=== PATIENT | male | born 1985 | race Two or more races ===

== ENCOUNTER → 2021-04-16 15:19 | Outpatient (BNVA) | payer OTHER, SELFPAY | PROVIDERS: Visit Provider Urology | DX: N32.0 Bladder-neck obstruction (principal); R39.12 Poor urinary stream | CPT/HCPCS: 51798; 99202 ==

== ENCOUNTER 2023-07-11 20:14 | Emergency (ER) | payer MEDICAID, SELFPAY ==
--- NOTE | ~2023-07-11 | XR_ITS ---
EXAMINATION: XR HAND, RIGHT CLINICAL INFORMATION: Pain. COMPARISON: None available. TECHNIQUE: PA, lateral, and oblique views of the right hand. FINDINGS: The bones and soft tissues are normal. No fracture. Alignment is anatomic. Joint spaces are maintained. No erosions or soft tissue calcifications. XR/XR hand RT min 3V IMPRESSION: Normal right hand.
[2023-07-11 20:51] VITALS: BP 130/87; PULSE 72; RESP 16; TEMP 37.1; O2SAT 98; BMI 32.7
--- NOTE | 2023-07-11 20:54 | ED_ITS ---
HPI - General Adult General Chief complaint: Extremity Injury, Upper Stated complaint: right hand swelling Time Seen by Provider: 07/11/23 23:04 Source: patient and family services assistant Mode of arrival: ambulatory History of Present Illness HPI narrative: 37-year-old male who states he woke up and found his right hand swollen but states that a couple of days ago he tried to get rid of an infection around the nail bed of his right index finger. He denies any fevers or chills and denies any history of diabetes. Related Data Previous Rx's Medication Instructions Recorded tamsulosin 0.4 mg capsule 0.4 mg PO BEDTIME 30 days #30 caps 04/16/21 cephalexin 500 mg capsule 500 mg PO BID 5 days #10 caps 07/12/23 doxycycline monohydrate 100 mg 100 mg PO BID 5 days #10 caps 07/12/23 capsule metformin 500 mg tablet 500 mg PO BIDWMEAL 30 days #60 tabs 07/12/23 Allergies Allergy/AdvReac Type Severity Reaction Status Date / Time No Known Allergies Allergy Verified 04/16/21 15:55 Review of Systems 2 Review of Systems: Pertinent positives and negatives as stated in HPI FORMERLY [facility], [facility] Past Medical History Source: nursing notes reviewed Social History Social History Smoked in Last 30 Days: No Use of substances other than those prescribed or required for medical reasons: No Advance Directives: No Advance Directives Information Provided: Yes Physical Exam ED Vital Signs: Vital Signs - 24 hr 07/11/23 20:51 07/11/23 22:24 07/12/23 01:35 Temperature 98.7 F 99.4 F Pulse Rate 72 80 80 Respiratory Rate 16 18 14 Blood Pressure 130/87 134/85 119/69 Pulse Oximetry 98 100 96 Oxygen Delivery Method Room Air Room Air Room Air BMI result Body Mass Index 32.7 VITAL SIGNS: Reviewed. GENERAL: Well developed, well nourished, in no acute distress. HEAD: Normocephalic/atraumatic EYES: PERRLA, EOMI EARS: Ext canals without abnormality NOSE: Nares patent bilateral OROPHARYNX: no oral lesions noted, posterior pharynx clear NECK: Supple, no adenopathy LUNGS: Normal breath sounds. No adventitious sounds or accessory muscle use. SpO2<100> CARDIOVASCULAR: Regular rate and rhythm without noted murmurs ABDOMEN: Soft, non-tender, non-distended with bowel sounds. MUSCULOSKELETAL: No tenderness, deformities, or effusions noted on gross inspection. EXTREMITIES: No cyanosis, clubbing or edema. RIGHT HAND: Erythema and mild induration across the dorsal aspect of the right hand, there is an obvious paronychia to the right index finger. SKIN: Inspection of the skin reveals no rashes NEUROLOGIC: Alert and oriented x 4. Strength and sensation to light touch were grossly intact x 4. Course Course Course Narrative: RME performed by Felipa Lambert PA-C. Patient is a 37 year old assigned male at presenting to the emergency department with right hand swelling and pain as well as right index finger swelling and pain. Labs and imaging ordered. Patient placed back in the waiting room pending room availability and results. Medications Administered Discontinued Medications Generic Name Dose Route Start Last Admin Trade Name Freq PRN Reason Stop Dose Admin Cephalexin HCl 500 mg 07/12/23 00:03 07/12/23 00:07 Cephalexin 500 Mg Capsule PO 07/12/23 00:04 500 mg ONCE ONE Administration Doxycycline Monohydrate 100 mg 07/12/23 00:03 07/12/23 00:07 Doxycycline Monohydrate 100 Mg Capsule PO 07/12/23 00:04 100 mg ONCE ONE Administration Insulin Human Lispro 5 unit 07/12/23 00:51 07/12/23 00:59 Insulin Lispro 100 Unit/Ml 3 Ml Vial SUBCUT 07/12/23 00:52 5 unit ONCE ONE Administration Procedures Abscess I/D Site: upper extremity Side (if applicable): right (Index paronychia) Local Anesthetic: lidocaine 1% Amount of anesthesia used (mL): 5 Technique: incised with blade Amount of fluid expressed (mL): 0.5 Sent for culture/gram staining?: No Irrigation: Yes Packing used?: none Medical Decision Making Medical Decision Making MDM Narrative: 37-year-old male with history and clinical presentation, ddx: Right hand cellulitis, right finger paronychia I reviewed all investigations and hematologic indices are negative for leukocytosis or left shift, there is a normocytic anemia without clinical or historical evidence of active bleeding, no thrombocytopenia. Chemistry and sees are not significant for LOR there is no electrolyte or liver enzyme derangements. Patient is noted to have a random glucose of 445 without evidence of DKA or HHS. X-ray of right Burt negative for occult fracture or dislocation. Patient received initial antibiotics here in the emergency room after draining the paronychia. Patient received 5 units of subcutaneous insulin here, initial antibiotics, repeat blood sugar 364 and he is discharged home. No evidence of a DKA or HHS. Differential Diagnosis Differential Diagnoses: The differential diagnosis associated with the presentation includes Please see the discussion above Admission/Observation Consideration of admission/observation: Escalation of care including admission/observation considered Please see the discussion above Lab Data MDM Lab Attestation statement: I reviewed the patient's lab results. Please see the discussion above 07/11/23 21:20 07/11/23 21:20 Labs: Lab Results 07/11/23 07/11/23 07/11/23 Range/Units 21:20 22:23 23:40 WBC 6.6 (4.8-10.8) X10*3/uL RBC 4.66 (4.60-5.80) X10*6/uL Hgb 13.0 L (14.0-18.0) g/dl Hct 38.3 L (42.0-52.0) % MCV 82.2 (80.0-98.0) fL MCH 27.9 (27.0-33.0) pg MCHC 33.9 (31.0-36.0) g/dl RDW 12.3 (11.0-16.0) % Plt Count 206 (160-400) X10*3/uL MPV 10.4 (9.4-12.4) fL Immature Gran % (Auto) 0.3 (0.0-0.4) % Neut % (Auto) 59.0 (45-73) % Lymph % (Auto) 30.6 (20-40) % [place] % (Auto) 8.8 (2-11) % Eos % (Auto) 1.1 (0-4) % Baso % (Auto) 0.2 (0-2) % Lymph # (Auto) 2.0 (1.2-4.9) X10*3/uL [place] # (Auto) 0.6 (0.1-1.2) X10*3/uL Eos # (Auto) 0.1 (0.0-0.4) X10*3/uL Baso # (Auto) 0.0 (0.0-0.2) X10*3/uL Abs Immat Gran (auto) 0.02 (0.00-0.03) X10*3/uL Absolute Neuts (auto) 3.9 (2.0-8.3) x10*3/uL Absolute Nucleated RBC 0.000 (0.0-0.012) X10*3/uL Nucleated RBC % (auto) 0.0 (0.0-0.2) /100WBC Sodium 137 (135-145) mmol/L Potassium 4.0 (3.3-5.1) mmol/L Chloride 102 (96-108) mmol/L Carbon Dioxide 24 (22-29) mmol/L Anion Gap 15 (12-20) BUN 17 H (9-16) mg/dL Creatinine 1.21 (0.5-1.4) mg/dL Estim Creat Clear Calc 87.0 Estimated GFR > 60 POC Glucose (60-115) mg/dL Random Glucose 445 H* (60-115) mg/dL Lactic Acid 2.0 (0.5-2.0) mmol/L Calcium 9.8 (8.4-10.2) mg/dL Magnesium 1.9 (1.6-2.6) mg/dL Total Bilirubin 0.4 (0.0-1.0) mg/dL AST 13 (5-37) U/L ALT 21 (0-40) U/L Alkaline Phosphatase 91 (39-117) U/L Ammonia Cancelled Total Protein 8.1 H (6.5-8.0) g/dL Albumin 4.2 (3.5-5.0) g/dL Beta-Hydroxybutyrate 0.19 (0.02-0.27) mmol/L Urine Color Straw Urine Appearance Clear Urine pH 6.5 (5.0-9.0) Ur Specific [place] 1.010 (1.005-1.025) Urine Protein Negative (Neg-Trace) mg/dL Urine Glucose (UA) >=1000 H (Negative) mg/dL Urine Ketones Trace (Negative) mg/dL Urine Blood Negative (Negative) Urine Nitrite Negative (Negative) Ur Leukocyte Esterase Negative (Negative) Urine RBC 0-2 (0-2) /HPF Urine WBC 0-5 (0-5) /HPF Ur Squamous Epith Cells 0-2 (0-2) /HPF Urine Bacteria None Seen (None Seen) Hyaline Casts 0-2 (0-2) /LPF 07/12/23 Range/Units 00:49 WBC (4.8-10.8) X10*3/uL RBC (4.60-5.80) X10*6/uL Hgb (14.0-18.0) g/dl Hct (42.0-52.0) % MCV (80.0-98.0) fL MCH (27.0-33.0) pg MCHC (31.0-36.0) g/dl RDW (11.0-16.0) % Plt Count (160-400) X10*3/uL MPV (9.4-12.4) fL Immature Gran % (Auto) (0.0-0.4) % Neut % (Auto) (45-73) % Lymph % (Auto) (20-40) % [place] % (Auto) (2-11) % Eos % (Auto) (0-4) % Baso % (Auto) (0-2) % Lymph # (Auto) (1.2-4.9) X10*3/uL [place] # (Auto) (0.1-1.2) X10*3/uL Eos # (Auto) (0.0-0.4) X10*3/uL Baso # (Auto) (0.0-0.2) X10*3/uL Abs Immat Gran (auto) (0.00-0.03) X10*3/uL Absolute Neuts (auto) (2.0-8.3) x10*3/uL Absolute Nucleated RBC (0.0-0.012) X10*3/uL Nucleated RBC % (auto) (0.0-0.2) /100WBC Sodium (135-145) mmol/L Potassium (3.3-5.1) mmol/L Chloride (96-108) mmol/L Carbon Dioxide (22-29) mmol/L Anion Gap (12-20) BUN (9-16) mg/dL Creatinine (0.5-1.4) mg/dL Estim Creat Clear Calc Estimated GFR POC Glucose 364 H* (60-115) mg/dL Random Glucose (60-115) mg/dL Lactic Acid (0.5-2.0) mmol/L Calcium (8.4-10.2) mg/dL Magnesium (1.6-2.6) mg/dL Total Bilirubin (0.0-1.0) mg/dL AST (5-37) U/L ALT (0-40) U/L Alkaline Phosphatase (39-117) U/L Ammonia Total Protein (6.5-8.0) g/dL Albumin (3.5-5.0) g/dL Beta-Hydroxybutyrate (0.02-0.27) mmol/L Urine Color Urine Appearance Urine pH (5.0-9.0) Ur Specific [place] (1.005-1.025) Urine Protein (Neg-Trace) mg/dL Urine Glucose (UA) (Negative) mg/dL Urine Ketones (Negative) mg/dL Urine Blood (Negative) Urine Nitrite (Negative) Ur Leukocyte Esterase (Negative) Urine RBC (0-2) /HPF Urine WBC (0-5) /HPF Ur Squamous Epith Cells (0-2) /HPF Urine Bacteria (None Seen) Hyaline Casts (0-2) /LPF Radiology Impression Discussion of test interpretation with radiology: I have reviewed the radiologist's reading. Radiologist Impression: Please see the discussion above Discharge Plan Discharge Clinical Impression: Cellulitis of hand, Paronychia of right index finger, Diabetes mellitus, new onset Patient Disposition: Home, Self-Care Instructions: Paronychia (ED), Cellulitis (ED), Type 2 Diabetes in Adults: New Diagnosis (ED), Diabetes and Nutrition (ED), Diabetes and Exercise (ED) Additional Instructions: 1. Puede quitarse el ap?sito del dedo derecho y limpiar con agua y jab?n, no es necesario colocar otro ap?sito encima. 2. Complete todo el tratamiento con antibi?ticos seg?n lo prescrito. 3. Le burt diagnosticado diabetes y le burt recetado medicamentos, gonzález debe buscar un proveedor de atenci?n primaria lo antes posible. Regrese a la silverio de emergencias si los s?ntomas empeoran, drake enrojecimiento e hinchaz?n, que contin?an subiendo por el brazo. 1. You may remove the dressing off of your right finger and cleaning with soap and water, there is no need to place another dressing on top of it. 2. Please complete the entire course of antibiotics as prescribed. 3. You have been diagnosed with diabetes and you have been prescribed medication but you should seek a primary care provider at your earliest convenience. Return to the ER for any worsening symptoms such as redness and swelling continuing to move up your arm. Prescriptions: New doxycycline monohydrate 100 mg capsule 100 mg PO BID 5 Days Qty: 10 0RF cephalexin 500 mg capsule 500 mg PO BID 5 Days Qty: 10 0RF metformin 500 mg tablet 500 mg PO BIDWMEAL 30 Days Qty: 60 0RF No Action tamsulosin 0.4 mg capsule 0.4 mg PO BEDTIME 30 Days Qty: 30 0RF Print Language: Tajik
[2023-07-11 21:27] LABS: MANUAL DIFF FLAG NO
[2023-07-11 21:28] LABS: Basophils Percent Auto 0.2 % (0-2); Eosinophils Absolute Auto 0.1 X10*3/uL (0.0-0.4); Eosinophils Percent Auto 1.1 % (0-4); Hematocrit 38.3 % (42.0-52.0); Imm Gran Abs Auto 0.02 X10*3/uL (0.00-0.03); Imm Gran Pct Auto 0.3 % (0.0-0.4); Lymphocytes Percent Auto 30.6 % (20-40); Mean Corpuscular HGB Conc 33.9 g/dl (31.0-36.0); Mean Corpuscular Hemoglobin 27.9 pg (27.0-33.0); Mean Corpuscular Volume 82.2 fL (80.0-98.0); Mean Platelet Volume 10.4 fL (9.4-12.4); Monocytes Absolute Auto 0.6 X10*3/uL (0.1-1.2); Monocytes Percent Auto 8.8 % (2-11); Neutrophils Absolute Auto 3.9 x10*3/uL (2.0-8.3); Platelet Count 206 X10*3/uL (160-400); Red Blood Count 4.66 X10*6/uL (4.60-5.80); Red Cell Distribution Width 12.3 % (11.0-16.0); White Blood Count 6.6 X10*3/uL (4.8-10.8)
[2023-07-11 21:48] LABS: Alanine Aminotransferase 21 U/L (0-40); Albumin Level 4.2 g/dL (3.5-5.0); Alkaline Phosphatase 91 U/L (39-117); Anion Gap 15 (12-20); Aspartate Amino Transferase 13 U/L (5-37); Bilirubin Total 0.4 mg/dL (0.0-1.0); Blood Urea Nitrogen 17 mg/dL (9-16); Calcium 9.8 mg/dL (8.4-10.2); Carbon Dioxide 24 mmol/L (22-29); Chloride 102 mmol/L (96-108); Estimated Glomerular Filt Rate > 60; Glucose Random 445 mg/dL (60-115); Magnesium 1.9 mg/dL (1.6-2.6); Sodium 137 mmol/L (135-145); Total Protein 8.1 g/dL (6.5-8.0)
[2023-07-11 22:24] VITALS: BP 134/85; PULSE 80; RESP 18; TEMP 37.4; O2SAT 100
[2023-07-11 22:37] LABS: Appearance Urine Clear; Color Urine Straw; Glucose Urine UA >=1000 mg/dL (Negative); Leukocyte Esterase Urine Negative (Negative); Nitrite Urine Negative (Negative); PH 6.5 (5.0-9.0); UMIC TRIGGER UACC YES; Urine Blood Negative (Negative); Urine Ketones Trace mg/dL (Negative); Urine Protein Negative (Neg-Trace)
[2023-07-11 22:47] LABS: Bacteria Urine None Seen (None Seen); Hyaline Casts Urine 0-2 /LPF (0-2); RBC Urine 0-2 /HPF (0-2); Squamous Epithelial Cell Urine 0-2 /HPF (0-2); WBC Urine 0-5 /HPF (0-5)
[2023-07-12] LABS: Beta-Hydroxybutyrate 0.19 mmol/L (0.02-0.27)
[2023-07-12] MEDS: Doxycycline Monohydrate 100 MG CAPSULE PO (00:07)
[2023-07-12] MEDS: cephALEXin 500 MG CAPSULE PO (00:07)
--- NOTE | 2023-07-12 00:17 | PC.NURSE ---
Pt presents to ED with infection to the right thumb post ingrown nail. Pt reporting 1/10 pain. A&Ox4, GCS 15. Dr Hines at bedside to assess finger. Pt medicated per OCT, resting comfortably at this time.
[2023-07-12 00:53] LABS: Glucose, Whole Blood 364 mg/dL (60-115)
[2023-07-12] MEDS: Insulin Lispro 100 UNIT/ML 3 ML VIAL SUBCUT (00:59)
[2023-07-12 01:35] VITALS: BP 119/69; PULSE 80; RESP 14; O2SAT 96
[2023-07-12 01:39] LABS: Glucose, Whole Blood 369 mg/dL (60-115)
[2023-07-12 07:32] LABS: Estimated Average Glucose 266 mg/dL; Hemoglobin A1c % 10.9 % (<6.0)
== END 2023-07-12 02:00 | disposition home or self-care (01) ==
PROVIDERS: Physician Assistant Medical; Emergency Provider Student in an Organized Health Care Education/Training Program
DX: L03.011 Cellulitis of right finger (principal); R22.31 Localized swelling, mass and lump, right upper limb; Z79.899 Other long term (current) drug therapy
CPT/HCPCS: 10060; 36415; 73130; 80053; 81001; 82010; 82140; 82947; 83036; 83605; 83735; 85025; 87040; 99283; 99284

== ENCOUNTER 2023-07-19 13:45 | Outpatient (REF) | payer MEDICAID, SELFPAY ==
[2023-07-19 16:29] LABS: Estimated Average Glucose 255 mg/dL; Hemoglobin A1c % 10.5 % (<6.0)
[2023-07-19 16:45] LABS: Cholesterol 197 mg/dL (<200); HDL Cholesterol 34 mg/dL (>40); Iron 65 mcg/dL (45-160); LDL Cholesterol Calculated 97 mg/dL (<100); Percent Iron Saturation 23 % (15-50); Total Iron Binding Capacity 279 mcg/dL (228-428); Triglycerides 333 mg/dL (<150); Unsaturated Iron Binding 214 ug/dL
[2023-07-19 16:54] LABS: Ferritin 313 ng/mL (20-250); Vitamin D 25-OH Total 42.2 ng/mL (>30)
[2023-07-19 17:10] LABS: Folate 14.5 ng/mL (> or = 4.0); Vitamin B12 666 pg/mL (200-900)
== END 2023-07-19 13:46 | disposition home or self-care (01) ==
LOC: HO.HHCL 13:45
PROVIDERS: Visit Provider Emergency Medicine
DX: E11.65 Type 2 diabetes mellitus with hyperglycemia (principal); E78.2 Mixed hyperlipidemia
CPT/HCPCS: 36415; 80061; 82306; 82607; 82728; 82746; 83036; 83540

== ENCOUNTER 2023-08-02 19:05 | Emergency (ER) | payer MEDICAID, SELFPAY ==
--- NOTE | ~2023-08-02 | XR_ITS ---
EXAMINATION: XR LUMBOSACRAL SPINE CLINICAL INFORMATION: Pain COMPARISON: None available. TECHNIQUE: Three views of the lumbosacral spine. FINDINGS: Bone alignment is normal. No fracture or dislocation. Mild degenerative spondylosis from T11-T12 to L1-L2. Mild disc space narrowing at L1-L2 and L5-S1. Mild facet arthritis of the lower lumbar spine. XR/XR lumbar spine 2-3V IMPRESSION: Mild degenerative changes.
[2023-08-02 20:55] VITALS: BP 128/77; PULSE 67; RESP 16; TEMP 36.9; BMI 30.1
--- NOTE | 2023-08-02 20:55 | ED_ITS ---
HPI - General Adult General Chief complaint: Back Pain/Injury Stated complaint: back pain, no injury Time Seen by Provider: 08/02/23 23:37 Source: patient Mode of arrival: ambulatory Limitations: no limitations History of Present Illness HPI narrative: Patient is a 37 y.o. male presents for diffuse lower back pain. Sudden onset at 18:30 tonight, was bending forward to pick sumething up and had sudden pain. Reports hx of similat in the past, resolved after a few days. Denies recent fevers, chills, burning with micturition, urinary frequency/urgency/hesitancy, bladder or bowel dysfunction, numbness or tingling of the perineum or bilateral legs. Denies any recent surgical procedures, any known immune compromising conditions, personal history of cancer, or IV drug usage. Related Data Previous Rx's Medication Instructions Recorded tamsulosin 0.4 mg capsule 0.4 mg PO BEDTIME 30 days #30 caps 04/16/21 cephalexin 500 mg capsule 500 mg PO BID 5 days #10 caps 07/12/23 doxycycline monohydrate 100 mg 100 mg PO BID 5 days #10 caps 07/12/23 capsule metformin 500 mg tablet 500 mg PO BIDWMEAL 30 days #60 tabs 07/12/23 cyclobenzaprine 10 mg tablet 10 mg PO TID PRN muscle spasm #20 08/03/23 tabs lidocaine 5 % topical patch 1 patch topical DAILY #15 ea 08/03/23 Allergies Allergy/AdvReac Type Severity Reaction Status Date / Time No Known Allergies Allergy Verified 08/02/23 20:55 Review of Systems Review of Systems: Yes all other systems are reviewed and are negative [facility] Past Medical History Attestation statement: The following information was validated with the patient. Source: old records reviewed Social History Social History Advance Directives: No Advance Directives Information Provided: No Physical Exam ED Vital Signs: Vital Signs - 24 hr 08/02/23 20:55 08/02/23 23:21 Temperature 98.4 F 98.5 F Pulse Rate 67 58 Respiratory Rate 16 14 Blood Pressure 128/77 121/73 Pulse Oximetry 99 Oxygen Delivery Method Room Air BMI result Body Mass Index 30.1 Appearance: Alert.?Oriented to person, place and time. No acute distress.?Normal affect. Eyes: Pupils equal, round and reactive to light.? ENT: Pharynx normal.?? Neck: Normal inspection.? Neck supple.?? CVS: Heart sounds normal. Normal heart rate and rhythm.? Pulses normal; bilateral radial pulses 2+, bilateral posterior tibial/dorsalis pedis pulses 2+.? Respiratory: No respiratory distress.? Lung sounds clear to auscultation bilaterally?? Abdomen: Soft and non-tender. Normoactive bowel sounds. No pulsatile mass.?? Skin: Skin warm and dry.? Normal skin color.? Normal skin turgor.?? Extremities: No lower extremity edema.? No calf ttp? Back: + mild paraspinal muscular tenderness from lumbar region to coccyx. No CVA tenderness. No midline spinal tenderness, step-off's, or deformity. Full ROM intact in bilateral lower extremities. Straight leg test negative on right; Straight leg test negative on left. No rashes, lesions, areas of induration or fluctuance, or signs of infection noted., Neuro: Moves all extremities spontaneously. 5/5 strength in hip extension/flexion, abduction, adduction. Sensation to light touch intact bilaterally. Patellar and Achilles reflex 2+ bilaterally. No ataxia, gait normal and steady.. No focal neuro deficits. Course Course Course Narrative: RME:?37 yo male here w/ low back pain beginning at 1800 today after bending forward to grab something. Pain localized to low back. No radiation down legs. Took Tylenol without relief. Denies saddle anesthesia, bowel or bladder incontinence or retention, numbness/weakness/tingling down lower extremities. No previous back surgery. No hx of IVDU. xrays ordered Full HPI, ROS and PE to be performed by the primary ED provider. Medications Administered Discontinued Medications Generic Name Dose Route Start Last Admin Trade Name Freq PRN Reason Stop Dose Admin Ketorolac Tromethamine 30 mg 08/03/23 00:32 08/03/23 00:43 Ketorolac Tromethamine 30 Mg/Ml Vial IM 08/03/23 00:33 30 mg ONCE ONE Administration Lidocaine 1 patch 08/03/23 00:32 08/03/23 00:44 Lidocaine 4 % Patch Adh..Patch TRANSDERMA 08/03/23 00:33 1 patch ONCE ONE Administration Protocol Medical Decision Making Medical Decision Making MDM Narrative: Patient is a 37-year-old male who presents emergency department for evaluation of back pain as per HPI. At my examination he appears overall well, nontoxic, afebrile. He has had recent diagnosis of diabetes, reports compliance with metformin. Her physical examination is overall reassuring, he does have tenderness upon palpation of the paraspinal muscles in the lumbar region. No midline tenderness, step-offs, deformities. XR obtained prior to my assumption of care does not reveal evidence of fracture or subluxation, there is degenerative changes present. At this time I suspect Pain is most consistent with muscular pain, although cannot completely exclude herniated disc. On neurological exam there are no deficits. Not consistent with spinal fracture, spinal infection, epidural abscess, AAA, epidural abscess, or dissection. No high risk past medical history including incontinence, fever, immunosuppression, recent surgery or lumbar puncture, coagulopathy, significant trauma, recent unintentional weight loss, pulsatile mass, history of cancer, history of TB, history of IV drug use that would warrant MRI or CT. Not consistent with pyelonephritis, urinary tract infection, renal calculi, appendicitis, diverticulitis. On exam no concern for cauda equina syndrome. No imaging is currently indicated at this time. Plan for discharge home with prescription for lighted derm patch, cyclobenzaprine and follow-up with primary care provider, and patient agreed with plan. Differential Diagnosis Differential Diagnoses: The differential diagnosis associated with the presentation includes (As noted above) Admission/Observation Consideration of admission/observation: Escalation of care including admission/observation considered (As noted above) Lab Data MDM Lab Attestation statement: I reviewed the patient's lab results. (As noted above) Labs: Lab Results 08/03/23 Range/Units 00:03 Urine Color Yellow Urine Appearance Clear Urine pH 6.5 (5.0-9.0) Ur Specific [place] 1.020 (1.005-1.025) Urine Protein Negative (Neg-Trace) mg/dL Urine Glucose (UA) 100 H (Negative) mg/dL Urine Ketones Negative (Negative) mg/dL Urine Blood Negative (Negative) Urine Nitrite Negative (Negative) Ur Leukocyte Esterase Negative (Negative) Independent Interpretation I performed an independent interpretation of an: Plain X-Ray (I personally interpreted XR imaging and agree with radiologist impression) Radiology Impression Discussion of test interpretation with radiology: I have reviewed the radiologis t's reading. Radiologist Impression: XR/XR lumbar spine 2-3V IMPRESSION: Mild degenerative changes. Prescription Management I considered prescription management with: Pain Medication Discharge Plan Discharge Clinical Impression: Strain of lumbar region Patient Disposition: Home, Self-Care Instructions: Acute Low Back Pain (ED), Lower Back Exercises (ED) Additional Instructions: You can take ibuprofen 200 mg, 3 tablets (600mg) every 6-8 hours as needed for pain, in addition to Tylenol 500 mg, 2 tablets (1,000mg) every 4-6 hours as needed for pain, but not to exceed 3 doses daily (3,000mg).? Use Lidoderm patch, wear for 12 hours and remove for 12 hours I sent a prescription for cyclobenzaprine/Flexeril to your pharmacy. This is a muscle relaxant medication. May with drowsy. He should not drive, drink alcohol, or work while taking this medication. Follow-up with your primary care provider. Return back to emergency department any new or worsening symptoms or concerns. Prescriptions: New cyclobenzaprine 10 mg tablet 10 mg PO TID PRN (Reason: muscle spasm) Qty: 20 0RF lidocaine 5 % adhesive patch,medicated 1 patch topical DAILY Qty: 15 0RF Rx Instructions: leave on most painful area for up to 12 hrs No Action doxycycline monohydrate 100 mg capsule 100 mg PO BID 5 Days Qty: 10 0RF cephalexin 500 mg capsule 500 mg PO BID 5 Days Qty: 10 0RF metformin 500 mg tablet 500 mg PO BIDWMEAL 30 Days Qty: 60 0RF tamsulosin 0.4 mg capsule 0.4 mg PO BEDTIME 30 Days Qty: 30 0RF Referrals: Physician,None [Primary Care Provider] -
[2023-08-02 23:21] VITALS: BP 121/73; PULSE 58; RESP 14; TEMP 36.9; O2SAT 99
--- NOTE | 2023-08-02 23:28 | PC.NURSE ---
Pt is a 37 y/o male who presents for evaluation of lower back pain that started at approximately 1800 hours today after lifting some heavy objects. Pt reports pain as non-radiating, constant, sharp, and rated 12/10. Reports taking one tab of OTC Lan ASA at home at 1900 hours with no relief or reduction of pain. Denies any numbness or tingling in extremities. Able to ambulate without assistance and CSMs are intact. No similar episode reported in the past and no reported history of back problems. Pts verbalized position of comfort is sitting upright.
[2023-08-03 00:11] LABS: Appearance Urine Clear; Color Urine Yellow; Glucose Urine UA 100 mg/dL (Negative); Leukocyte Esterase Urine Negative (Negative); Nitrite Urine Negative (Negative); PH 6.5 (5.0-9.0); Urine Blood Negative (Negative); Urine Ketones Negative (Negative); Urine Protein Negative (Neg-Trace)
[2023-08-03] MEDS: Ketorolac Tromethamine 30 MG/ML VIAL IM (00:43)
[2023-08-03] MEDS: Lidocaine 4 % Patch ADH..PATCH 1 PATCH TRANSDERMA (00:44)
== END 2023-08-03 01:30 | disposition home or self-care (01) ==
PROVIDERS: Nurse Practitioner Family; Emergency Provider Emergency Medicine
DX: M54.50 Low back pain, unspecified (principal); R35.0 Frequency of micturition; Z79.899 Other long term (current) drug therapy
CPT/HCPCS: 72100; 81003; 96372; 99284; J1885

== ENCOUNTER 2023-09-19 13:50 | Outpatient (REF) | payer MEDICAID, SELFPAY ==
[2023-09-19 16:28] LABS: Anion Gap 14 (12-20); Blood Urea Nitrogen 15 mg/dL (9-16); Calcium 9.9 mg/dL (8.4-10.2); Carbon Dioxide 26 mmol/L (22-29); Chloride 104 mmol/L (96-108); Estimated Glomerular Filt Rate > 60; Glucose Random 220 mg/dL (60-115); Potassium 4.6 mmol/L (3.3-5.1); Sodium 139 mmol/L (135-145)
[2023-09-19 17:45] LABS: Creatinine Urine 123.47 mg/dL; Microalbum/Creatinine Ratio Ur 6.4 ug/mg cr (<30)
== END 2023-09-19 13:51 | disposition home or self-care (01) ==
LOC: HO.HHCL 13:50
PROVIDERS: Visit Provider Nurse Practitioner Family
DX: E11.65 Type 2 diabetes mellitus with hyperglycemia (principal); E78.2 Mixed hyperlipidemia
CPT/HCPCS: 36415; 80048; 82043; 82570

== ENCOUNTER 2025-02-26 13:40 | Inpatient (IN) | payer MEDICAID, SELFPAY ==
--- NOTE | ~2025-02-26 | XR_ITS ---
EXAMINATION: XR FOOT, RIGHT CLINICAL INFORMATION: swelling red. osteo COMPARISON: None available. TECHNIQUE: AP, lateral, and oblique views of the right foot. FINDINGS: The bones and soft tissues are normal. No fracture. There is mild hallux valgus deformity across the IP joint of the great toe. Joint spaces are maintained. There is a calcaneal enthesophyte at the Achilles insertion. XR/XR foot RT 2V IMPRESSION: Mild hallux valgus deformity. Otherwise, unremarkable right foot. Electronically signed by: Hudson Lanza MD 02/26/2025 03:28 PM EDT
--- NOTE | ~2025-02-26 | XR_ITS ---
EXAMINATION: XR ANKLE, right CLINICAL INFORMATION: swollen red. osteo? COMPARISON: None available. TECHNIQUE: AP, lateral, and mortise views lower extremity joint, ankle. FINDINGS: Ankle mortise is congruent. There is no widening of the syndesmosis. Talar dome is intact. There is a small enthesophyte at the Achilles insertion on calcaneus. There is soft tissue swelling at the level of the ankle joint. XR/XR ankle RT 2V IMPRESSION: Unremarkable ankle x-ray. Electronically signed by: Hudson Lanza MD 02/26/2025 03:26 PM EDT
--- NOTE | ~2025-02-26 | XR_ITS ---
EXAMINATION: XR TIBIA AND FIBULA, RIGHT CLINICAL INFORMATION: RIght leg swelling/redness COMPARISON: None available. TECHNIQUE: AP and lateral views of the right tibia and fibula were obtained. FINDINGS: The bones and soft tissues are normal. No fracture. No osseous lesions. XR/XR tibia fibula RT 2V IMPRESSION: Unremarkable right lower leg. Electronically signed by: Hudson Lanza MD 02/26/2025 03:27 PM EDT
[2025-02-26 14:20] VITALS: BP 130/86; PULSE 91; RESP 16; TEMP 36.8; O2SAT 98; BMI 32.4
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
[2025-02-26 15:01] LABS: MANUAL DIFF FLAG NO
[2025-02-26 15:03] LABS: Hematocrit 36.7 % (42.0-52.0); Hemoglobin 12.6 g/dl (14.0-18.0); Imm Gran Abs Auto 0.04 X10*3/uL (0.00-0.03); Imm Gran Pct Auto 0.4 % (0.0-0.4); Lymphocytes Absolute Auto 1.6 X10*3/uL (1.2-4.9); Mean Corpuscular HGB Conc 34.3 g/dl (31.0-36.0); Mean Corpuscular Hemoglobin 27.8 pg (27.0-33.0); Mean Corpuscular Volume 80.8 fL (80.0-98.0); NRBC Abs Auto 0.000 X10*3/uL (0.0-0.012); NRBC Pct Auto 0.0 /100WBC (0.0-0.2); Platelet Count 207 X10*3/uL (160-400); Red Blood Count 4.54 X10*6/uL (4.60-5.80); White Blood Count 9.4 X10*3/uL (4.8-10.8)
[2025-02-26 15:19] LABS: Alanine Aminotransferase 23 U/L (0-40); Albumin Level 4.8 g/dL (3.5-5.0); Alkaline Phosphatase 93 U/L (39-117); Anion Gap 14 (12-20); Aspartate Amino Transferase 17 U/L (5-37); Blood Urea Nitrogen 12 mg/dL (9-16); Calcium 10.0 mg/dL (8.4-10.2); Carbon Dioxide 23 mmol/L (22-29); Chloride 103 mmol/L (96-108); Creatinine Clr Calc Pharmacy 155.7; Estimated Glomerular Filt Rate > 60; Potassium 4.3 mmol/L (3.3-5.1); Sodium 136 mmol/L (135-145); Total Protein 8.3 g/dL (6.5-8.0)
--- OUTSIDE RECORDS SUMMARY | 2025-02-26 16:44 | XMS_ITS | Clinical Summary ---
Author Organization [employer] Address [address] [place] [address] [address] [place] [address] Care Team Providers Care Oil Well Engineer Name Role Phone EditaCely conn ANDREW Primary Care Provider [phone] Allergies No known active allergies Medications Alcohol Swabs (Alcohol Prep) pads 1 each 2 times daily. 100 each 3 3 Active FREESTYLE LITE test strip Use as instructed 100 each 12 3 Active Blood Glucose Monitoring Suppl (FreeStyle Lite) w/Device kit 1 each 2 times daily. 1 kit 3 Active pen needle 32G x 4 mm misc Use as instructed 100 each 3 3 Active TRUEplus Lancets 33G misc USE DIRECTED TO TEST BLOOD SUGAR TWICE DAILY 100 each 11 4 Active metFORMIN (Glucophage) 500 MG tabletIndicatio ns:Type 2 diabetes mellitus with hyperglycemia, without long-term current use of insulin ([facility]) Take 1 tablet (500 mg) by mouth with breakfast and with evening meal. 60 tablet 3 4 Active Active Problems Problem Noted Date Diagnosed Date Mixed hyperlipidemia 07/13/2023 Type 2 diabetes mellitus wit h hyperglycemia, without long-term current use of insulin 07/13/2023 Anemia 07/13/2023 Encounters Date Type Department Care Team Description 02/26/2025 Orders Only GENERIC EXTERNAL DATA DEPARTMENT Provider, Generic External Data from Last 3 Months Immunizations Immunization Administration Dates Next Due Pneumococcal Conjugate PCV 20 11/07/2023 Tdap 11/07/2023 Family History Medical History Relation Name Comments Breast cancer Maternal Grandmother Relation Name Status Comments Maternal Grandmother Social History Tobacco Use Types Packs/Day Years Used Date Smoking Tobacco: Never Smokeless Tobacco: Never Tobacco Cessation:Counseling Given: Not Answered Alcohol Use Standard Drinks/Week Comments Yes 6 (1 standard drink = 0.6 oz pur e alcohol) 2-3 times monthly Depression Answer Date Recorded Patient Health Questionnaire-9 Score 1 08/26/2023 Patient Health Questionnaire-9 Score 1 08/26/2023 Last PHQ-9: Questionnaire Data Not on file 0 08/26/2023 Housing Stability Answer Date Recorded What is your housing situation today? I have eufemia wilkins 08/18/[address] you li ve. Do you have problems with any of the following? None of the above 08/18/2023 Food Insecurity Answer Date Recorded Within the past 12 months, y ou worried that your food would run out before you got money to buy more: Never True 08/18/2023 Within the past 12 months,th e food you bought just didn't last and you didn't have enough money to get more: Never True 06/2024 Transportation Answer Date Recorded In the past 12 months, has l ack of transportation kept you from medical appts, meetings, work or from getting things needed for daily living? No 08/18/2023 Utilities Answer Date Recorded In the past 12 months, has t he electric, gas, oil or water company threatened to shut off services in your home? No 08/18/2023 Depression Answer Date Recorded Patient Health Questionnaire-2 Score 0 08/26/2023 Sex and Gender Information Value Date Recorded Sex Assigned at Male 06/07/2022 10:37 AM EDT Legal Sex Male 10:37 AM EDT Gender Identity Male 06/07/2022 10:37 AM EDT Sexual Orientation Straight 06/07/2022 10 :37 AM EDT Last Filed Vital Signs Vital Sign Reading Time Taken Comments Blood Pressure 132/68 11/07/2023 3:49 PM EDT Pulse 74 11/07/2023 3:49 PM EDT Temperature 36.4 C (97.6 F) 07/13/2023 8:59 AM EST Respiratory Rate 20 08/26/2023 3:32 PM EST Oxygen Saturation 98% 08/26/2023 3:32 PM EST Inhaled Oxygen Concentration - - Weight 94 kg (207 lb 3.2 oz) 08/26/2023 3:32 PM EST Height 167.6 cm (5' 6 ) 08/26/2023 3:32 PM EST Body Mass Index 33.44 08/26/2023 3:32 PM EST Plan of Treatment Upcoming Encounters Date Type Department Care Team (Late st Contact Info) Description 05/06/2025 1:30 PM EDT Office Visit [facility] [address] [place] [address] Indra, Ramona, OD [address] [place] [address] Health Maintenance Due Date Last Done Comments Disability Screening 1983 Diabetes: Foot Exam 1993 Alcohol/Substance Use Screening 1995 Family Planning (PISQ) 1998 HPV Vaccines (1 - Male 3-dose series) 1998 Hepatitis B Vaccines (1 of 3 - 19+ 3-dose series) 2002 Dental Oral Exam 03/02/2021 09/01/2020 Dental X-Ray: Bitewings 09/02/2021 09/01/2020 Dental Prophylaxis 10/02/2021 03/31/2021, 09/16/2020 Dental X-Ray: Full Mouth 09/02/2023 09/01/2020 Diabetes: Hemoglobin A1C 02/06/2024 024, 07/19/2023, 07/13/2023, Additional history exists COVID-19 Vaccine ( season) 2024 01/08/2021, 12/10/2020 Lipid Panel 07/19/2024 07/19/2023, 03/10/2021 Depression Screening 08/26/2024 08/26/2023, 08/26/19 24 SDOH Screening 08/26/2024 08/26/2023 Diabetes: Urine Protein Screening 09/19/2024 09/19/2023 Tobacco Screening 09/28/2024 09/28/2023 Influenza Vaccine (#1) 2025 Eye Exam 09/07/2025 09/07/2023, 08/10, 09/07/2023, Additional history exists Zoster Vaccines (1 of 2) 2033 DTaP/Tdap/Td Vaccines (2 - Td or Tdap) 11/06/2033 11/07/2023 RSV Patients and Patients Aged 60 years or older (1 - 1-dose 75+ series) 2058 HIV Screening Completed 03/10/2021 Hepatitis C Screening Completed 03/10/2021 Pneumococcal Vaccine: Pediatrics (0 to 5 Years) and At-Risk Patients (6 to 49) Years Completed 11/07/2023 HIB Vaccines Aged Out No longer eligi ble based on patient's age to complete this topic Hepatitis A Vaccines Aged Out No long er eligible based on patient's age to complete this topic IPV Vaccines Aged Out No longer eligi ble based on patient's age to complete this topic Meningococcal B Vaccine Aged Out No l onger eligible based on patient's age to complete this topic Meningococcal Vaccine Aged Out No mehnaz josé luis eligible based on patient's age to complete this topic RSV under 20 months Aged Out No longe r eligible based on patient's age to complete this topic Rotavirus Vaccines Aged Out No longer eligible based on patient's age to complete this topic Goals Goal Patient Goal Type Associated Problems Recent Progress Patient-Stated? Author Hemoglobin A1c < 7 Result Component 7(11/07/2023 3:51 PM EDT) No Marsha Warner Record your blood sugar two times daily Result Component No Marsha Warner Procedures Procedure Name Priority Date/Time Associated Diagnosis Comments XR ANKLE 2 VIEWS RIGHT Routine 02/26/2025 3:10 PM EDT SED RATE BY MODIFIED WESTERGREN Routine 02/26/2025 2:54 PM EDT C-REACTIVE PROTEIN Routine 02/26/2025 2: 54 PM EDT COMPREHENSIVE METABOLIC PANEL Routine 02/26/2025 2:54 PM EDT LACTIC ACID Routine 02/26/2025 2:54 PM EDT CBC WITH AUTO DIFFERENTIAL Routine 02/26/2025 2:54 PM EDT XR FOOT 1-2 VIEWS RIGHT Routine 02/26/2025 2:16 PM EDT XR TIBIA FIBULA 2 VIEWS RIGHT Routine 02/26/2025 2:13 PM EDT POCT GLYCATED HEMOGLOBIN, TOTAL Routine 11/07/2023 3:51 PM EDT Type 2 diabetes mellitus with hyperglycemia, without long-term current use of insulin (CMS/HCC) ALBUMIN, RANDOM URINE W/CREATININE Routine 09/19/2023 1:53 PM EST Type 2 diabetes mellitus with hyperglycemia, without long-term current use of insulin (CMS/HCC) LIPID PANEL, STANDARD Routine 07/19/2023 1:49 PM EST Mixed hyperlipidemia PROPHYLAXIS - ADULT Routine 03/31/2021 1 2:00 AM EDT ZZZ HISTORICAL HEPATITIS C AB W/REFL TO HCV RNA, QN, PCR Routine 03/10/2021 9:15 AM EDT HIV 1/2 ANTIGEN/ANTIBODY, FOURTH GENERATION W/RFL Routine 03/10/2021 9:15 AM EDT INTRAORAL - COMPLETE SERIES OF RADIOGRAPHIC IMAGES Routine 09/01/2020 12:00 AM EST COMPREHENSIVE ORAL EVALUATION - NEW OR ESTABLISHED PATIENT Routine 09/01/2020 12:00 AM EST from Last 3 Months or Most Recently Relevant to Health Maintenance Results * XR Ankle 2 Views Right (02/26/2025 3:10 PM EDT) Anatomical Region Laterality Modality Lower Extremities, Ankle Right Radiogr aphic Imaging 02/26/2025 3:10 PM EDT Narrative 02/26/2025 3:28 PM [address]T [address] [address] XRay Report Signed Patient: Schuyler Kathleen MR#: [id number] : 1985 Acct:[id number] Age/Sex: 39 / M ADM Date: 02/26/25 Loc: HO.ED Attending Dr: Ordering Physician: Zacarias Polanco Date of Service: 02/26/25 Procedure(s): XR ankle RT 2V Accession Number(s): [id number] cc: Zacarias Polanco; [facility] EXAMINATION: XR ANKLE, right CLINICAL INFORMATION: swollen red. osteo? COMPARISON: None available. TECHNIQUE: AP, lateral, and mortise views lower extremity joint, ankle. FINDINGS: Ankle mortise is congruent. There is no widening of the syndesmosis. Talar dome is intact. There is a small enthesophyte at the Achilles insertion on calcaneus. There is soft tissue swelling at the level of the ankle joint. XR/XR ankle RT 2V IMPRESSION: Unremarkable ankle x-ray. Electronically signed by: Hudson Lanza MD 02/26/2025 03:26 PM EDT Dictated By: Hudson Lanza MD Signed By: <Electronically signed by Hudson Lanza MD in OV> 02/26/25 1526 DD/ 1510 TD/TT: 02/26/25 1521 Jack Winder: Procedure Note Donotuseinterpreter, Image - 02/26/[address] [address] XRay Report Signed Patient: Schuyler Kathleen AMR#: M [id number] : 1985Acct:[id number] Age/Sex: 39 / MADM Date: 02/26/25 Loc: .ED Attending Dr: Ordering Physician: Zacarias Polanco Date of Service: 02/26/25 Procedure(s): XR ankle RT 2V Accession Number(s): [id number] cc: Zacarias Polanco; [facility] EXAMINATION: XR ANKLE, right CLINICAL INFORMATION: swollen red. osteo? COMPARISON: None available. TECHNIQUE: AP, lateral, and mortise views lower extremity joint, ankle. FINDINGS: Ankle mortise is congruent. There is no widening of the syndesmosis. Talar dome is intact. There is a small enthesophyte at the Achilles insertion on calcaneus. There is soft tissue swelling at the level of the ankle joint. XR/XR ankle RT 2V IMPRESSION: Unremarkable ankle x-ray. Electronically signed by: Hudson Lanza MD 02/26/2025 03:26 PM EDT RP Dictated By: Hudson Lanza MD Signed By: <Electronically signed by Hudson Lanza MD in OV> 02/26/25 1526 DD/ 1510 TD/TT: 02/26/25 1521 Jack Winder: [facility] External Provider IMG XR PROCEDURES Final Result * (ABNORMAL) CBC auto differential (02/26/2025 2:54 PM EDT) White Blood Count 9.4 4.8 - 10.8 X10*3/uL [facility] Red Blood Count 4.54(L) 4.60 - 5.80 X10*6/uL [facility] Hemoglobin 12.6(L) 14.0 - 18.0 g/dl [facility] Hematocrit 36.7(L) 42.0 - 52.0 % [facility] Mean Corpuscular Volume 80.8 80.0 - 98.0 fL [facility] Mean Corpuscular Hemoglobin 27.8 27.0 - 33.0 pg [facility] Mean Corpuscular HGB Conc 34.3 31.0 - 36.0 g/dl [facility] Red Cell Distribution Width 12.6 11.0 - 16.0 % [facility] Platelet Count 207 160 - 400 X10*3/uL [facility] Mean Platelet Volume 10.0 9.4 - 12.4 fL [facility] Neutrophils Percent Auto 73.5(H) 45 - 73 % [facility] Imm Gran Pct Auto 0.4 0.0 - 0.4 % [facility] Lymphocytes Percent Auto 16.9(L) 20 - 40 % [facility] Monocytes Percent Auto 8.4 2 - 11 % [facility] Eosinophils Percent Auto 0.7 0 - 4 % [facility] Basophils Percent Auto 0.1 0 - 2 % [facility] NRBC Pct Auto 0.0 0.0 - 0.2 /100WBC [facility] Neutrophils Absolute Auto 6.9 2.0 - 8.3 x10*3/uL [facility] Imm Gran Abs Auto 0.04(H) 0.00 - 0.03 X10*3/uL [facility] Lymphocytes Absolute Auto 1.6 1.2 - 4.9 X10*3/uL [facility] Monocytes Absolute Auto 0.8 0.1 - 1.2 X10*3/uL [facility] Eosinophils Absolute Auto 0.1 0.0 - 0.4 X10*3/uL [facility] Basophils Absolute Auto 0.0 0.0 - 0.2 X10*3/uL [facility] NRBC Abs Auto 0.000 0.0 - 0.012 X10*3/uL [facility] 02/26/2025 2:54 PM EDT 02/26/2025 2:59 PM EDT Generic External Data Provider LAB BLOOD ORDERAB LES Final Result Performing Organization Address [facility]/ZIP Co de Phone Number [facility] [address] [place] [phone] * (ABNORMAL) Sed Rate by Modified Pamela (02/26/2025 2:54 PM EDT) Erythrocyte Sedimentation Rate 69(H) 0 - 15 MM/HR [facility] Comment:Patients with polycy themia and many hemoglobin abnormalitiesmay have depressed sed rates whereas patients with anemiamay have elevated sed rates. 02/26/2025 2:54 PM EDT 02/26/2025 2:59 PM EDT us Generic External Data Provider LAB BLOOD ORDERAB LES Final Result Performing Organization Address [facility]/ZIP Co de Phone Number [facility] [address] [place] [phone] * (ABNORMAL) C-reactive Protein (02/26/2025 2:54 PM EDT) Pathologist [facility] C Reactive Protein 14.21(H) < or = 0.50 mg/dL [facility] 02/26/2025 2:54 PM EDT 02/26/2025 2:59 PM EDT Generic External Data Provider LAB BLOOD ORDERAB LES Final Result Performing Organization Address [facility]/ZIP Co de Phone Number [facility] [address] [place] [phone] * Lactic Acid (02/26/2025 2:54 PM EDT) [facility] Lactic Acid 0.9 0.5 - 2.0 mmol/L [facility] 02/26/2025 2:54 PM EDT 02/26/2025 2:59 PM EDT [employer] External Data Provider LAB BLOOD ORDERAB LES Final Result Performing Organization Address [facility] Co de Phone Number [facility] [address] [place] [phone] * (ABNORMAL) Comprehensive Metabolic Panel (02/26/2025 2:54 PM EDT) [facility] Sodium 136 135 - 145 mmol/L [facility] Potassium 4.3 3.3 - 5.1 mmol/L [facility] Chloride 103 96 - 108 mmol/L [facility] Carbon Dioxide 23 22 - 29 mmol/L [facility] Anion Gap 14 12 - 20 [facility] Urea Nitrogen (BUN) 12 9 - 16 mg/dL [facility] Creatinine, Serum 0.66 0.5 - 1.4 mg/dL [facility] Creatinine Clr Calc Pharmacy 155.7 [facility] Comment:eGFR (calculated fro m the MDRD study equation) and eCrCl(calculated from the Cockcroft-Gault equation) are based ondifferent parameters and may not yield comparable results.If eCrCl result is absurd, please check patient'sheight/weight. Estimated Glomerular Filt Rate >60 [facility] Comment:Chronic Kidney Disea se: Estimated GFR < 60 mL/min/1.39n4Nzofty Kidney Disease: Estimated GFR < 15 mL/min/1.73m2 Glucose 273(H) 60 - 115 mg/dL [facility] Calcium 10.0 8.4 - 10.2 mg/dL [facility] Bilirubin, Total 0.7 0.0 - 1.0 mg/dL [facility] Aspartate Amino Transferase 17 5 - 37 U/L [facility] Alanine Aminotransferase 23 0 - 40 U/L [facility] Total Protein 8.3(H) 6.5 - 8.0 g/dL [facility] Albumin Level 4.8 3.5 - 5.0 g/dL [facility] Alkaline Phosphatase 93 39 - 117 U/L [facility] 02/26/2025 2:54 PM EDT 02/26/2025 2:59 PM EDT us Generic External Data Provider LAB BLOOD ORDERAB LES Final Result [facility] [address] [place] [phone] * XR Foot 1-2 Views Right (02/26/2025 2:16 PM EDT) Anatomical Region Laterality Modality Lower Extremities, Foot Right Radiogra phic Imaging 02/26/2025 2:16 PM EDT Narrative 02/26/2025 3:31 PM EDT [address] [address] XRay Report Signed Patient: Schuyler Kathleen MR#: M [id number] : 1985 Acct:[id number] Age/Sex: 39 / M ADM Date: 02/26/25 Loc: .ED Attending Dr: Ordering Physician: Zacarias Polanco Date of Service: 02/26/25 Procedure(s): XR foot RT 2V Accession Number(s): [id number] cc: Zacarias Polanco; [facility] EXAMINATION: XR FOOT, RIGHT CLINICAL INFORMATION: swelling red. osteo COMPARISON: None available. TECHNIQUE: AP, lateral, and oblique views of the right foot. FINDINGS: The bones and soft tissues are normal. No fracture. There is mild hallux valgus deformity across the IP joint of the great toe. Joint spaces are maintained. There is a calcaneal enthesophyte at the Achilles insertion. XR/XR foot RT 2V IMPRESSION: Mild hallux valgus deformity. Otherwise, unremarkable right foot. Electronically signed by: Hudson Lanza MD 02/26/2025 03:28 PM EDT Dictated By: Hudson Lanza MD Signed By: <Electronically signed by Hudson Lanza MD in OV> 02/26/25 1528 DD/ 1416 TD/TT: 02/26/25 1521 Jack Winder: Procedure Note Donotuseinterpreter, Image - 02/26/2025 [place] [address] XRay Report Signed Patient: Schuyler Kathleen AMR#: M [id number] : 1985Acct:[id number] Age/Sex: 39 / MADM Date: 02/26/25 Loc: HO.ED Attending Dr: Ordering Physician: Zacarias Polanco Date of Service: 02/26/25 Procedure(s): XR foot RT 2V Accession Number(s): [id number] cc: Zacarias Polanco; [facility] EXAMINATION: XR FOOT, RIGHT CLINICAL INFORMATION: swelling red. osteo COMPARISON: None available. TECHNIQUE: AP, lateral, and oblique views of the right foot. FINDINGS: The bones and soft tissues are normal. No fracture. There is mild hallux valgus deformity across the IP joint of the great toe. Joint spaces are maintained. There is a calcaneal enthesophyte at the Achilles insertion. XR/XR foot RT 2V IMPRESSION: Mild hallux valgus deformity. Otherwise, unremarkable right foot. Electronically signed by: Hudson Lanza MD 02/26/2025 03:28 PM EDT RP Dictated By: Hudson Lanza MD Signed By: <Electronically signed by Hudson Lanza MD in OV> 02/26/25 1528 DD/ 1416 TD/TT: 02/26/25 1521 Jack Winder: us [facility] External Provider IMG XR PROCEDURES Final Result * XR Tibia Fibula 2 Views Right (02/26/2025 2:13 PM EDT) Anatomical Region Laterality Modality Lower Extremities, Lower Leg Right Rad iographic Imaging 02/26/2025 2:13 PM EDT Narrative 02/26/2025 3:30 PM EDT [address] [address] XRay Report Signed Patient: Schuyler Kathleen MR#: M [id number] : 1985 Acct:[id number] Age/Sex: 39 / M ADM Date: 02/26/25 Loc: .ED Attending Dr: Ordering Physician: Zacarias Polanco Date of Service: 02/26/25 Procedure(s): XR tibia fibula RT 2V Accession Number(s): [id number] cc: Zacarias Polanco; [facility] EXAMINATION: XR TIBIA AND FIBULA, RIGHT CLINICAL INFORMATION: RIght leg swelling/redness COMPARISON: None available. TECHNIQUE: AP and lateral views of the right tibia and fibula were obtained. FINDINGS: The bones and soft tissues are normal. No fracture. No osseous lesions. XR/XR tibia fibula RT 2V IMPRESSION: Unremarkable right lower leg. Electronically signed by: Hudson Lanza MD 02/26/2025 03:27 PM EDT RP Dictated By: Hudson Lanza MD Signed By: <Electronically signed by Hudson Lanza MD in OV> 02/26/25 1527 DD/ 1413 TD/TT: 02/26/25 1521 Jack Winder: Procedure Note Nickiter, Image - 02/26/[address] [address] XRay Report Signed Patient: Schuyler Kathleen AMR#: M [id number] : 1985Acct:[id number] Age/Sex: 39 / MADM Date: 02/26/25 Loc: .ED Attending Dr: Ordering Physician: Zacarias Polanco Date of Service: 02/26/25 Procedure(s): XR tibia fibula RT 2V Accession Number(s): [id number] cc: Zacarias Polanco; [facility] EXAMINATION: XR TIBIA AND FIBULA, RIGHT CLINICAL INFORMATION: RIght leg swelling/redness COMPARISON: None available. TECHNIQUE: AP and lateral views of the right tibia and fibula were obtained. FINDINGS: The bones and soft tissues are normal. No fracture. No osseous lesions. XR/XR tibia fibula RT 2V IMPRESSION: Unremarkable right lower leg. Electronically signed by: uHdson Lanza MD 02/26/2025 03:27 PM EDT Dictated By: Hudson Lanza MD Signed By: <Electronically signed by Hudson Lanza MD in OV> 02/26/25 1527 DD/ 1413 TD/TT: 02/26/25 1521 Jack Winder: [facility] External Provider IMG XR PROCEDURES Final Result * (ABNORMAL) POCT A1C (11/07/2023 3:51 PM EDT) Hemoglobin A1C 7.0(A) 4.0 - 6.0 % QC Media Lot # [id number] Lot# Expiration Date [id number] Blood 11/07/2023 3:51 PM EDT [employer] [facility] POINT OF CARE TEST ENTER/EDIT O RDERABLES Final Result * Albumin, Random Urine W/Creatinine (09/19/2023 1:53 PM EST) Creatinine, Urine 123.47 mg/dL [facility] Microalbumin Urine 8.0 mg/L [facility] Microalbum Creatinine Ratio Ur 6.4 <30 ug/mg cr [facility] Comment:Albumin/Creatinine R atio Reference Ranges: Normal: < 30 ug/mg creatinine Microalbuminuria: 30 - 300 ug/mg creatinineClinical Albuminuria: > 300 ug/mg creatinine 09/19/2023 1:53 PM EST 09/19/2023 4:13 PM EST [email or web address] LAB URINE ORDERABLES Final Resu lt Performing Organization Address City/State/[facility] Co de Phone Number [facility] [address] [place] [phone] * (ABNORMAL) Lipid Panel, Standard (07/19/2023 1:49 PM EST) Triglycerides 333(H) <150 mg/dL [facility] Comment:Desirable Triglyceri de: less than 150 mg/dLBorderline High Triglyceride 150-199 mg/dLHigh Triglyceride: 200-499 mg/dLVery High Triglyceride: greater than or equal to 5OO mg/dL Cholesterol 197 <200 mg/dL [facility] Comment:Desirable Cholestero l: less than 200 mg/dLBorderline High Cholesterol: 200-239 mg/dLHigh Cholesterol: greater than 239 mg/dL LDL Cholesterol Calculated 97 <100 mg/dL [facility] Comment:Desirable LDL: less than 100 mg/dLNear Optimal/Above Optimal LDL: 110- 129 mg/dLBorderline High LDL: 130-159 mg/dLHigh LDL: 160-189 mg/dLVery High LDL: greater than or equal to 190 mg/dL HDL Cholesterol 34(L) >40 mg/dL [facility] Comment:Desirable HDL: great er than 40 mg/dL Note: This HDL assay may give artificially low results in patients with liver disease. Blood Venous blood specimen / Unknown 07/19/2023 1:49 PM EST 07/19/2023 4:11 PM EST Damon Duran MD LAB BLOOD ORDERABLES Final Resul t [facility] [address] [place] [phone] * HEPATITIS C AB W/REFL TO HCV RNA, QN, PCR (03/10/2021 9:15 AM EDT) HEPATITIS C ANTIBODY NON-REACT JOHN NON-REACT JOHN [facility] INDEX 0.01 <1.00 [facility] Comment: HCV antibody was non-reactive. There is no laboratory evidence of HCV infection. In most cases, no further action is required. However, if recent HCV exposure is suspected, a test for HCV RNA (test code 71052) is suggested. For additional information please refer to http://education.[employer]/faq/XVG18v5 (This link is being provided for informational/ educational purposes only.) 03/10/2021 9:15 AM EDT Historical Provider HISTORICAL/NON ORDERABLE LABS Final Result [facility] [address] * HIV 1/2 ANTIGEN/ANTIBODY,FOURTH GENERATION W/RFL (03/10/2021 9:15 AM EDT) HIV-1/2 ANTIGEN AND ANTIBODIES, 4TH GENERATION W/ REFLEX NON-REACT JOHN NON-REACT JOHN [facility] Comment: HIV-1 antigen and HIV-1/HIV-2 antibodies were not detected. There is no laboratory evidence of HIV infection. PLEASE NOTE: This information has been disclosed to you from records whose confidentiality may be protected by state law. If your state requires such protection, then the state law prohibits you from making any further disclosure of the information without the specific written consent of the person to whom it pertains, or as otherwise permitted by law. A general authorization for the release of medical or other information is NOT sufficient for this purpose. For additional information please refer to http://education.[employer]/faq/NMF760 (This link is being provided for informational/ educational purposes only.) The performance of this assay has not been clinically validated in patients less than 2 years old. 03/10/2021 9:15 AM EDT us Historical Provider LAB BLOOD ORDERABLES Guadalupe gandhi Result [facility] [address] from Last 3 Months or Most Recently Relevant to Health Maintenance Insurance [facility] F[facility] [facility] [employer] [facility] Care Teams Oil Well Engineer Relationship Specialty Start Date End Date Cely Joshi NP [address] [place] [id number] PCP - General Family Medicine 04/11/24
[2025-02-26] MEDS: vancomycin/NS 2,000 MG/500 ML PLAST..BAG 250 MG IV (17:47)
--- NOTE | 2025-02-26 17:54 | PHA.MEDREC ---
Addendum entered by Franky Chamberlain, [facility] 02/26/25 18:43: med rec reviewed Original Note: Pharmacy Consult ? Medication Reconciliation Pharmacy has completed the medication reconciliation. Utilized draughtsman services. Per pt he is still taking Metformin 500mg tabs 1 BID when he feels like it, or when he feels his sugars go high ; he states he was filling that at [facility] on [address] I called [facility] and they stated the last time they filled Metformin at their facility was July 2023 for a QTY of 60 for 30 days.
[2025-02-26 20:18] VITALS: BP 131/81; PULSE 93; RESP 18; TEMP 36.9; O2SAT 100
[2025-02-26 20:54] LABS: Glucose, Whole Blood 328 mg/dL (60-115)
--- NOTE | 2025-02-26 21:07 | PHA.PROG ---
Admission Date/Time: February 26, 2025 16:50 Indication: SKIN Weight in k.2 kg Adjusted body weight in Kg: [place] body weight in Kg: Obesity Dosing Indication % IBW: Serum Creatinine - Last 168 Hours 02/26/25 14:54 Creatinine 0.66 Estimated CrCl and GFR - Last 168 Hours 02/26/25 14:54 Estim Creat Clear Calc 155.7 Estimated GFR > 60 Vancomycin Loading Dose: 2000 MG Current Vancomycin Dosing Regimen: 1250 MG Q12H Vancomycin Monitoring using AUC goal of 400 - 600 range with trough as surrogate marker: ZUI=[id number] TROUGH=13.8 Date and Time for next Vancomycin Level to be drawn: 02/28/25@0600 Pharmacist Comments on Vancomycin Plan: Vancomycin dosing will take advantage of [employer] as a clinical decision support tool that uses Bayesian modeling to calculate individual patient's pharmacokinetic parameters and forecast the patient's drug concentration time course with the target goal AUC 24 range of 400 - 600 mg/L/hr.
--- NOTE | 2025-02-26 21:29 | PM.IMHP ---
History of Present Illness Date of Service: 02/26/25 Attending physician on admission: Gilberto Dickson Chief Complaint: Right leg pain and swelling Schuyler Rosario is a 39 years old man with past medical history significant for diabetes mellitus on metformin presents to the emergency department complaining of right leg pain, redness swelling after his leg got stuck between his both and car a week ago [place] was [place]. He had superficial abrasion over the lateral aspect of the leg and are ulcerated lesion over the ankle area. He decided to come to the to the hospital as he has been unable to walk well due to this. He denied any fever or chills. He denied any headache, palpitations, dizziness or weakness. He did not report any acute cardiopulmonary, gastrointestinal or genitourinary symptoms. He denied tobacco smoking, alcohol abuse or illicit drug use. In the ED, he was found to have normal vital signs. Blood workup showed no leukocytosis or lactic acidosis. Hemoglobin is 12.6 and platelets 207. There are no electrolyte imbalances. Last glucose 328. CRP is 14.21. Foot, ankle and tib/fib x-ray showed no acute findings. ED tx: Vancomycin 2 g IV, Zosyn 3.375 mg IV Review of Systems Review of Systems: All 12 systems were reviewed and normal except as noted in HPI. [facility] Medical History (Updated 02/26/25 @ 21:45 by Gilberto Dickson MD) Type 2 diabetes mellitus Social History Patient Tobacco Use Status: Never used Tobacco Smoked in Last 30 Days: No Use of substances other than those prescribed or required for medical reasons: No Advance Directives: No Advance Directives Information Provided: No Do you have a plan to hurt others: No Plan Nutrition Risks: No Nutritional Risk Meds Allergies Allergy/AdvReac Type Severity Reaction Status Date / Time No Known Allergies Allergy Verified 02/26/25 14:24 Active Medications: Current Medications Acetaminophen (Acetaminophen 325 Mg Tablet) 975 mg PO Q6H PRN PRN Reason: Pain, Mild 1-3,fever,headache Calcium Carbonate (Calcium Carbonate 750 Mg Tab.Chew) 750 mg PO Q4H PRN PRN Reason: Heartburn Dextrose (Dextrose 50 % 25 Gm/50 Ml Syringe) 25 gm IVPUSH Q15M PRN; Protocol PRN Reason: per Hypoglycemia Standing Ord. Enoxaparin Sodium (Enoxaparin Sodium 40 Mg/0.4 Ml Syringe) 40 mg SUBCUT Q24H [facility] Glucose (Glucose Gel 15 Gm Gel..Gram.) 15 gm PO Q15M PRN; Protocol PRN Reason: per Hypoglycemia Standing Ord. Piperacillin Sod/Tazobactam (Sod 3.375 gm/ Sodium Chloride) 50 mls @ 100 mls/hr IV Q6H [facility] Vancomycin HCl 1,250 mg/ (Sodium Chloride) 250 mls @ 166.667 mls/hr IV Q12H [facility] Insulin Human Lispro (Insulin Lispro 100 Unit/Ml 3 Ml Vial) 0 unit SUBCUT QIDACHS [facility]; Protocol Last Admin: 02/26/25 21:03 Dose: 8 unit Magnesium Hydroxide (Milk Of Magnesia 30 Ml Oral.Susp) 30 ml PO DAILY PRN PRN Reason: Constipation Melatonin (Melatonin 3 Mg Tablet) 6 mg PO BEDTIME PRN PRN Reason: Insomnia Metformin HCl (Metformin Hcl 500 Mg Tablet) 500 mg PO BIDWM [facility] Pharmacy Consult (Consult Rx Vancomycin Dosing) 1 each MISCELLANE DAILY PRN PRN Reason: Consult order Sodium Chloride (0.9 % Sodium Chloride Flush 3 Ml Syringe) 3 ml IVFLUSH QSHIFT [facility] Physical Exam Vital Signs and Narrative: Vital Signs: Last Vital Signs Temp 98.5 F 02/26/25 20:18 Pulse 93 02/26/25 20:18 Resp 18 02/26/25 20:18 BP 131/81 02/26/25 20:18 Pulse Ox 100 02/26/25 20:18 O2 Del Method Room Air 02/26/25 20:18 BMI result Body Mass Index 32.4 Constitutional - Awake and Alert, No apparent distress. Afebrile. HEENT - PER, EOMI Heart - RRR, No murmurs Lungs - Normal lung expansion, Normal respiratory effort, No respiratory distress, CTA bilaterally Abdomen - NT / ND; +BS; No rebound or guarding Extremities - right leg: Lateral aspect: Abrasion with purulent material with surrounding erythema, increased warmth, tenderness and edema. Right ankle: 2 in ulcer over lateral aspect with blackish material without obvious discharges. Distal pulses intact. Musculoskeletal - Normal inspection, normal ROM Skin - Warm/Dry Neurological - Alert & oriented x3. Moving all extremities spontaneously. Normal speech. Psychological - Appropriate affect Results Labs 02/26/25 14:54 02/26/25 14:54 Labs: Laboratory Results - last 24 hr 02/26/25 02/26/25 02/26/25 14:54 17:45 20:50 MCV 80.8 MCH 27.8 MCHC 34.3 RDW 12.6 Plt Count 207 MPV 10.0 Immature Gran % (Auto) 0.4 Neut % (Auto) 73.5 H Lymph % (Auto) 16.9 L Appling % (Auto) 8.4 Eos % (Auto) 0.7 Baso % (Auto) 0.1 Lymph # (Auto) 1.6 App[place] # (Auto) 0.8 Eos # (Auto) 0.1 Baso # (Auto) 0.0 Abs Immat Gran (auto) 0.04 H Absolute Neuts (auto) 6.9 Absolute Nucleated RBC 0.000 Nucleated RBC % (auto) 0.0 ESR 69 H Hold Purple Top SEE NOTE Anion Gap 14 Estim Creat Clear Calc 155.7 Estimated GFR > 60 POC Glucose 328 H Random Glucose 273 H Lactic Acid 0.9 1.0 Calcium 10.0 Total Bilirubin 0.7 AST 17 ALT 23 Alkaline Phosphatase 93 C-Reactive Protein 14.21 H Total Protein 8.3 H Albumin 4.8 Hold Yellow Top See Note Imaging Radiologist's Impressions: Impressions Tibia/Fibula X-Ray 02/26/25 14:13 IMPRESSION: Unremarkable right lower leg. Electronically signed by: Hudson Lanza MD 02/26/2025 03:27 PM EDT RP Foot X-Ray 02/26/25 14:16 IMPRESSION: Mild hallux valgus deformity. Otherwise, unremarkable right foot. Electronically signed by: Hudson Lanza MD 02/26/2025 03:28 PM EDT RP Ankle X-Ray 02/26/25 15:10 IMPRESSION: Unremarkable ankle x-ray. 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 Admit to Med surge. Continue empiric IV antibiotic therapy with Zosyn and vancomycin. Blood cultures were obtained -1 follow results. Wound care and general surgery consult. Type 2 diabetes mellitus. Continue metformin. BG checks before meals at bedtime. Insulin sliding scale. Diabetic diet. DVT prophylaxis: Lovenox. Code status: Full Patient will need hospitalization for at least 2 midnights for right leg cellulitis right ankle infected ulcer in the setting of diabetes mellitus treatment with IV antibiotic therapy and evaluation by Surgical Service. Quality Stroke Does the patient have a stroke diagnosis?: No VTE Prior VTE?: No VTE Risk Level:: Medical - moderate - high VTE Device Contraindication: Treatment Not Indicated VTE Drug Contraindication: N/A - Med Ordered
[2025-02-26 22:02] VITALS: BP 129/86; PULSE 92; RESP 18; TEMP 36.6; O2SAT 98
[2025-02-26 22:16] VITALS: BMI 32.4
[2025-02-27 04:00] VITALS: BP 119/70; PULSE 94; RESP 18; TEMP 36.1; O2SAT 96
[2025-02-27 05:48] LABS: MANUAL DIFF FLAG NO
[2025-02-27 05:59] LABS: Hematocrit 34.0 % (42.0-52.0); Hemoglobin 11.5 g/dl (14.0-18.0); Imm Gran Abs Auto 0.02 X10*3/uL (0.00-0.03); Imm Gran Pct Auto 0.3 % (0.0-0.4); Lymphocytes Absolute Auto 1.5 X10*3/uL (1.2-4.9); Mean Corpuscular HGB Conc 33.8 g/dl (31.0-36.0); Mean Corpuscular Hemoglobin 27.8 pg (27.0-33.0); Mean Corpuscular Volume 82.1 fL (80.0-98.0); NRBC Abs Auto 0.000 X10*3/uL (0.0-0.012); NRBC Pct Auto 0.0 /100WBC (0.0-0.2); Platelet Count 194 X10*3/uL (160-400); Red Blood Count 4.14 X10*6/uL (4.60-5.80); White Blood Count 6.3 X10*3/uL (4.8-10.8)
[2025-02-27 06:27] LABS: Anion Gap 14 (12-20); Blood Urea Nitrogen 13 mg/dL (9-16); Calcium 9.5 mg/dL (8.4-10.2); Carbon Dioxide 24 mmol/L (22-29); Chloride 104 mmol/L (96-108); Creatinine Clr Calc Pharmacy 130.1; Estimated Glomerular Filt Rate > 60; Potassium 4.5 mmol/L (3.3-5.1); Sodium 137 mmol/L (135-145)
--- NOTE | 2025-02-27 06:40 | HE.PHANOTE ---
re [facility] Patients level is not due to be pulled until 02/28. Patient has only received load dose thus far. Load dose was appropriate. Slight increase in SCR from yesterday, up to .79 from 0.66 yesterday. Predicted AUC showing 462. Will continue with currect dosing of 1250 mg Q12H.
--- NOTE | 2025-02-27 07:15 | P.CONGS_ITS ---
History of Present Illness Consult details Consult date: 02/27/25 <Adan Amanda PA-C - Last Filed: 02/27/25 10:21> Narrative: 39 year old male with a history of T2DM, not on medication seen in consult for lower extremity wounds after he slipped on [place] boat ramp a week ago. States the injury was initially a scrape, and then gradually progressed to this wound. He was trying to keep the area clean using antibiotic ointment and epsom salt baths. he states yesterday he was at work and coud no longer put pressure on the wound due to pain and swelling of the RLE. He came to the ED to be evaluated. Labs did not show leukocytosis, xray was unremarkable, negative for osteomyelitis. He was started on IV vanco and zosyn, metformin. He states it has improved today, less pain ful and less swollen. Denies fever or chills <Adan Amanda PA-C - Last Filed: 02/27/25 10:21> Review of Systems 2 Review of Systems: Yes all other systems are reviewed and are negative < Adan Amanda PA-C - Last Filed: 02/27/25 10:21> [facility] Past Medical History Medical History: Medical History Type 2 diabetes mellitus <KONRAD Velez Last Filed: 02/27/25 10:21> Social History Social History: Social History Household Members: Significant Other Housing: House Do you presently have visiting nurse or other home services: No Patient Tobacco Use Status: Never used Tobacco <Adan Amanda PA-C - Last Filed: 02/27/25 10:21> Meds Allergies/Adverse reactions: Allergies Allergy/AdvReac Type Severity Reaction Status Date / Time No Known Allergies Allergy Verified 02/26/25 14:24 <KONRAD Velez Last Filed: 02/27/25 10:21> Active Medications: Current Medications Acetaminophen (Acetaminophen 325 Mg Tablet) 975 mg PO Q6H PRN PRN Reason: Pain, Mild 1-3,fever,headache Calcium Carbonate (Calcium Carbonate 750 Mg Tab.Chew) 750 mg PO Q4H PRN PRN Reason: Heartburn Dextrose (Dextrose 50 % 25 Gm/50 Ml Syringe) 25 gm IVPUSH Q15M PRN; Protocol PRN Reason: per Hypoglycemia Standing Ord. Enoxaparin Sodium (Enoxaparin Sodium 40 Mg/0.4 Ml Syringe) 40 mg SUBCUT Q24H [facility] Glucose (Glucose Gel 15 Gm Gel..Gram.) 15 gm PO Q15M PRN; Protocol PRN Reason: per Hypoglycemia Standing Ord. Piperacillin Sod/Tazobactam (Sod 3.375 gm/ Sodium Chloride) 50 mls @ 100 mls/hr IV Q6H [facility] Last Infusion: 02/27/25 06:33 Dose: Infused Vancomycin HCl 1,250 mg/ (Sodium Chloride) 250 mls @ 166.667 mls/hr IV Q12H [facility] Insulin Human Lispro (Insulin Lispro 100 Unit/Ml 3 Ml Vial) 0 unit SUBCUT QIDACHS [facility]; Protocol Last Admin: 02/26/25 21:03 Dose: 8 unit Magnesium Hydroxide (Milk Of Magnesia 30 Ml Oral.Susp) 30 ml PO DAILY PRN PRN Reason: Constipation Melatonin (Melatonin 3 Mg Tablet) 6 mg PO BEDTIME PRN PRN Reason: Insomnia Metformin HCl (Metformin Hcl 500 Mg Tablet) 500 mg PO BIDWM [facility] Oxycodone HCl (Oxycodone Hcl Immed Release 5 Mg Tablet) 5 mg PO Q6H PRN PRN Reason: Pain, Severe (Pain Scale 7-10) Pharmacy Consult (Consult Rx Vancomycin Dosing) 1 each MISCELLANE DAILY PRN PRN Reason: Consult order Sodium Chloride (0.9 % Sodium Chloride Flush 3 Ml Syringe) 3 ml IVFLUSH QSHIFT [facility] Last Admin: 02/27/25 00:45 Dose: Not Given <Adan Amanda PA-C - Last Filed: 02/27/25 10:21> Physical Exam 2 Vital Signs: Vital Signs: Last Vital Signs Temp 97 F 02/27/25 04:00 Pulse 94 02/27/25 04:00 Resp 18 02/27/25 04:00 BP 119/70 02/27/25 04:00 Pulse Ox 96 02/27/25 04:00 O2 Del Method Room Air 02/27/25 04:00 BMI result Body Mass Index 32.4 <Adan Amanda PA-C - Last Filed: 02/27/25 10:21> Const: General: comfortable and no acute distress <Adan TreasureKONRAD Bandar Last Filed: 02/27/25 10:21> Orientation/consciousness: patient oriented x3 <Adan TreasureKONRAD Bandar Last Filed: 02/27/25 10:21> Resp: Effort & Inspection: normal respiratory effort and able to speak in complete sentences <Adan TreasureKONRAD Bandar Last Filed: 02/27/25 10:21> Neuro: General: patient oriented x3 <Adan TreasureKONRAD Bandar Last Filed: 02/27/25 10:21> Extrem: Other: RLE: See photo below. 4 x 3 cm ulceration over the lateral malleolous with surrounding erythema and edema and warmth. mild crusting of the wound border with a closed scab over the middle of the ulcer. Minimally tender. superior aspect is more superficial wound with surrounding erythema <Adan Amanda PA-C Bandar Last Filed: 02/27/25 10:21> General: Yes edema (1+ pitting on distal lower extremity ) <Adan Amanda PA-C Bandar Last Filed: 02/27/25 10:21> Results Labs Result diagrams: 02/27/25 05:32 02/27/25 05:32 <Adan TreasureKONRAD Bandar Last Filed: 02/27/25 10:21> Labs: Abnormal lab results 02/26/25 02/26/25 02/27/25 Range/Units 14:54 20:50 05:32 RBC 4.54 L 4.14 L (4.60-5.80) X10*6/uL Hgb 12.6 L 11.5 L (14.0-18.0) g/dl Hct 36.7 L 34.0 L (42.0-52.0) % Neut % (Auto) 73.5 H (45-73) % Lymph % (Auto) 16.9 L (20-40) % Abs Immat Gran (auto) 0.04 H (0.00-0.03) X10*3/uL ESR 69 H (0-15) MM/HR POC Glucose 328 H (60-115) mg/dL Random Glucose 273 H 352 H* (60-115) mg/dL C-Reactive Protein 14.21 H (< or = 0.50) mg/dL Total Protein 8.3 H (6.5-8.0) g/dL Short CBC 02/26/25 02/27/25 Range/Units 14:54 05:32 WBC 9.4 6.3 (4.8-10.8) X10*3/uL Hgb 12.6 L 11.5 L (14.0-18.0) g/dl Hct 36.7 L 34.0 L (42.0-52.0) % Plt Count 207 194 (160-400) X10*3/uL BMP 02/26/25 02/27/25 14:54 05:32 Sodium 136 137 Potassium 4.3 4.5 Chloride 103 104 Carbon Dioxide 23 24 BUN 12 13 Creatinine 0.66 0.79 Calcium 10.0 9.5 Liver Function 02/26/25 Range/Units 14:54 Total Bilirubin 0.7 (0.0-1.0) mg/dL AST 17 (5-37) U/L ALT 23 (0-40) U/L Alkaline Phosphatase 93 (39-117) U/L Albumin 4.8 (3.5-5.0) g/dL All other labs normal. <Adan Amanda PA-C - Last Filed: 02/27/25 10:21> Assessment and Plan (1) Cellulitis of right lower leg: Status: Acute <Adan Amanda PA-C - Last Filed: 02/27/25 10:21> 39-year-old male with traumatic ulcer and cellulitis ankle as described above Some superficial eschar Dressings changed by GEORGE Amanda Wound care,dressing changes and IV antibiotics for now Leg elevation Seen and examined independently <Nikita Nguyen MD - Last Filed: 02/27/25 08:56> 39 year old male with a history of T2DM (not currently on home medication) seen in consult for RLE extremity wounds after an injury 1 week ago. Today he does not complain of pain in the RLE. He was started on IV vanco and zosyn in the ED. Patient has a 4x3 cm ulceration on the lateral malleolous with 1+ edema of the distal extremity and surrounding erythema. There is some crusting of the wound border and a hard scab overlying the wound. This may need debridement in the future. the superior wound is more superficial but appears closed. Would continue with daily wound care, will try medihoney this afternoon. patient POC glucose have been significantly elevated, will need glucose control for optimal wound healing. Continue IV ABX Glucose control leg elevation daily wound care, may need debridement in future. Will try medihoney with gauze dressings today and will reassess tomorrow. Wound care consult pending <Adan Amanda PA-C - Last Filed: 02/27/25 10:21> Procedures Date of Service Date of Service: 02/27/25 <Adan Amanda PA-C - Last Filed: 02/27/25 10:21> 02/27/25 <Nikita Nguyen MD - Last Filed: 02/27/25 08:56>
[2025-02-27 07:28] LABS: Hemoglobin A1C 239.9350 umol/L; Total Hemoglobin (HGBA1C) 3023.1969 umol/L
[2025-02-27 07:32] VITALS: BP 121/70; PULSE 77; RESP 18; TEMP 36.3; O2SAT 96
[2025-02-27 07:35] LABS: Glucose, Whole Blood 270 mg/dL (60-115)
[2025-02-27] MEDS: 0.9 % Sodium Chloride Flush 3 ML SYRINGE IVFLUSH ×2 (08:30→16:41)
[2025-02-27 09:39] VITALS: BP 169/81; PULSE 84; RESP 18; TEMP 37.2; O2SAT 96
[2025-02-27 11:24] LABS: Glucose, Whole Blood 209 mg/dL (60-115)
--- NOTE | 2025-02-27 12:39 | HO.WOUND ---
Wound Consult deferred to General Surgery Team. 39yr old male admitted to [facility] on 02/26/25 - see H&P for detailed history. Chart review reveals patient was seen by General Surgery team and topical recommendations made. Discussed with Dr. Valenzuela - she will update topical orders for Betadine and Hydrocolloid dressings. Patient to follow up outpt with [facility].
--- NOTE | 2025-02-27 15:22 | MHC.CM.PN ---
pt lives with s/o is independent has no services has own ride homem dc plan home no services
[2025-02-27 15:23] VITALS: BP 116/63; PULSE 88; RESP 16; TEMP 36.4; O2SAT 98
[2025-02-27 16:13] LABS: Glucose, Whole Blood 267 mg/dL (60-115)
--- NOTE | 2025-02-27 17:15 | P.PNIM_ITS ---
Subjective Subjective Date of Service: 02/27/25 Interval History: Right leg cellulitis Review of Systems Leg has erythema similar, pain in somewhat improving as per patient Review of Systems: Yes all other systems are reviewed and are negative Physical Exam 2 Exam: Exam: Appearance: Alert.? Oriented X3.? cvs: rrr, [id number]. res: clear to auscultation ,no rhonchii or wheezing abd: no rebound or guarding ,nt, bs present. ext pulses present , no cyanosis ,right leg erythema similar -see H&P picture. neuro: axo3 , nonfocal. Vital Signs: Vital Signs: Last Vital Signs Temp 97.5 F 02/27/25 15:23 Pulse 88 02/27/25 15:23 Resp 16 02/27/25 15:23 BP 116/63 02/27/25 15:23 Pulse Ox 98 02/27/25 15:23 O2 Del Method Room Air 02/27/25 15:23 BMI result Body Mass Index 32.4 Objective Data Active Medications Acetaminophen (Acetaminophen 325 Mg Tablet) 975 mg PO Q6H PRN PRN Reason: Pain, Mild 1-3,fever,headache Calcium Carbonate (Calcium Carbonate 750 Mg Tab.Chew) 750 mg PO Q4H PRN PRN Reason: Heartburn Dextrose (Dextrose 50 % 25 Gm/50 Ml Syringe) 25 gm IVPUSH Q15M PRN; Protocol PRN Reason: per Hypoglycemia Standing Ord. Enoxaparin Sodium (Enoxaparin Sodium 40 Mg/0.4 Ml Syringe) 40 mg SUBCUT Q24H [facility] Last Admin: 02/27/25 08:33 Dose: Not Given Documented By: OWEN Non-Admin Reason: Patient Refused Glucose (Glucose Gel 15 Gm Gel..Gram.) 15 gm PO Q15M PRN; Protocol PRN Reason: per Hypoglycemia Standing Ord. Piperacillin Sod/Tazobactam (Sod 3.375 gm/ Sodium Chloride) 50 mls @ 100 mls/hr IV Q6H [facility] Last Admin: 02/27/25 16:42 Dose: 100 mls/hr Documented By: OWEN Vancomycin HCl 1,250 mg/ (Sodium Chloride) 250 mls @ 166.667 mls/hr IV Q12H [facility] Last Infusion: 02/27/25 10:07 Dose: Infused Documented By: OWEN Insulin Human Lispro (Insulin Lispro 100 Unit/Ml 3 Ml Vial) 0 unit SUBCUT QIDACHS [facility]; Protocol Last Admin: 02/27/25 16:35 Dose: 6 unit Documented By: OWEN Magnesium Hydroxide (Milk Of Magnesia 30 Ml Oral.Susp) 30 ml PO DAILY PRN PRN Reason: Constipation Melatonin (Melatonin 3 Mg Tablet) 6 mg PO BEDTIME PRN PRN Reason: Insomnia Metformin HCl (Metformin Hcl 500 Mg Tablet) 500 mg PO BIDWM [facility] Last Admin: 02/27/25 16:36 Dose: 500 mg Documented By: OWEN Oxycodone HCl (Oxycodone Hcl Immed Release 5 Mg Tablet) 5 mg PO Q6H PRN PRN Reason: Pain, Severe (Pain Scale 7-10) Pharmacy Consult (Consult Rx Vancomycin Dosing) 1 each MISCELLANE DAILY PRN PRN Reason: Consult order Sodium Chloride (0.9 % Sodium Chloride Flush 3 Ml Syringe) 3 ml IVFLUSH [facility] Last Admin: 02/27/25 16:41 Dose: 3 ml Documented By: OWEN Labs 02/27/25 05:32 02/27/25 05:32 Labs: Laboratory Results - last 24 hr 02/26/25 02/26/25 02/27/25 17:45 20:50 05:32 MCV 82.1 MCH 27.8 MCHC 33.8 RDW 12.5 Plt Count 194 MPV 10.1 Immature Gran % (Auto) 0.3 Neut % (Auto) 63.9 Lymph % (Auto) 24.3 Riley % (Auto) 9.9 Eos % (Auto) 1.3 Baso % (Auto) 0.3 Lymph # (Auto) 1.5 Riley # (Auto) 0.6 Eos # (Auto) 0.1 Baso # (Auto) 0.0 Abs Immat Gran (auto) 0.02 Absolute Neuts (auto) 4.0 Absolute Nucleated RBC 0.000 Nucleated RBC % (auto) 0.0 Hold Purple Top SEE NOTE Anion Gap 14 Estim Creat Clear Calc 130.1 Estimated GFR > 60 POC Glucose 328 H Random Glucose 352 H* Estimat Average Glucose 223 Hemoglobin A1c % 9.4 H Lactic Acid 1.0 Calcium 9.5 Hold Yellow Top See Note 02/27/25 02/27/25 02/27/25 07:31 11:05 16:08 MCV MCH MCHC RDW Plt Count MPV Immature Gran % (Auto) Neut % (Auto) Lymph % (Auto) Riley % (Auto) Eos % (Auto) Baso % (Auto) Lymph # (Auto) Riley # (Auto) Eos # (Auto) Baso # (Auto) Abs Immat Gran (auto) Absolute Neuts (auto) Absolute Nucleated RBC Nucleated RBC % (auto) Hold Purple Top Anion Gap Estim Creat Clear Calc Estimated GFR POC Glucose 270 H 209 H 267 H Random Glucose Estimat Average Glucose Hemoglobin A1c % Lactic Acid Calcium Hold Yellow Top Microbiology Microbiology Results: Microbiology 02/26/25 14:54 Blood Culture - Preliminary Blood - Venous No growth after 24 hours. 02/26/25 14:54 Blood Culture - Preliminary Blood - Venous No growth after 24 hours. Assessment and Plan (1) Cellulitis of right lower leg: Status: Acute Plan 39 y/o man admitted with: Right leg cellulitis + right ankle infected ulcer after trauma. Admit to Med surge. Continue empiric IV antibiotic therapy with Zosyn and vancomycin. Blood cultures were obtained -1 follow results. Wound care and general surgery consult. Type 2 diabetes mellitus. Continue metformin. BG checks before meals at bedtime. Insulin sliding scale. Diabetic diet. DVT prophylaxis: Lovenox. Ongoing need for hospitalization for right leg cellulitis right ankle infected ulcer in the setting of diabetes mellitus treatment with IV antibiotic therapy and evaluation by Surgical Service. Quality Stroke Does the patient have a stroke diagnosis?: No VTE Prior VTE?: No VTE Risk Level:: Medical - moderate - high VTE Device Contraindication: Treatment Not Indicated VTE Drug Contraindication: N/A - Med Ordered
[2025-02-27 20:00] VITALS: BP 118/62; PULSE 87; RESP 16; TEMP 36.2; O2SAT 96
[2025-02-27 20:09] LABS: Glucose, Whole Blood 211 mg/dL (60-115)
[2025-02-27] MEDS: oxyCODONE HCl Immed Release 5 MG TABLET PO (20:56)
[2025-02-28 03:53] VITALS: BP 114/65; PULSE 77; RESP 18; TEMP 36.6; O2SAT 98
[2025-02-28] MEDS: oxyCODONE HCl Immed Release 5 MG TABLET PO (05:48)
[2025-02-28 06:39] LABS: Creatinine Clr Calc Pharmacy 123.8; Estimated Glomerular Filt Rate > 60
--- NOTE | 2025-02-28 06:59 | HE.PHANOTE ---
Re [place] Renal function is fluctuating. Trough is 7.5. Predictions have current prediction below goal of AUC 321. Dose increased to 1250mg q8h with predicted AUC 481, predicted trough 12.7. Next trough7/25 @ 0600.
[2025-02-28 07:17] LABS: Glucose, Whole Blood 242 mg/dL (60-115)
[2025-02-28 07:33] VITALS: BP 103/66; PULSE 65; RESP 16; TEMP 36.4; O2SAT 95
[2025-02-28] MEDS: 0.9 % Sodium Chloride Flush 3 ML SYRINGE IVFLUSH ×3 (07:38→23:34)
--- NOTE | 2025-02-28 07:46 | P.PNGS_ITS ---
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 no new complaints. Endorses intermittent pain in the foot but improved overall. denies fever, chills. has not been ambulating to stay off the foot. <Adan Amanda PA-C - Last Filed: 02/28/25 08:08> Physical Exam 2 Vital Signs: Vital Signs: Last Vital Signs Temp 97.5 F 02/28/25 07:33 Pulse 65 02/28/25 07:33 Resp 16 02/28/25 07:33 BP 103/66 02/28/25 07:33 Pulse Ox 95 02/28/25 07:33 O2 Del Method Room Air 02/28/25 07:33 BMI result Body Mass Index 32.4 <Adan Amanda PA-C - Last Filed: 02/28/25 08:08> Const: General: comfortable and no acute distress <Adan Amanda PA-C - Last Filed: 02/28/25 08:08> Orientation/consciousness: patient oriented x3 <KONRAD Velez Last Filed: 02/28/25 08:08> Resp: Effort & Inspection: normal respiratory effort and able to speak in complete sentences <Adan Amanda PA-C - Last Filed: 02/28/25 08:08> Neuro: General: patient oriented x3 <KONRAD Velez Last Filed: 02/28/25 08:08> Extrem: Other: RLE: See photo below. 4 x 3 cm ulceration over the lateral malleolous with surrounding erythema and edema and warmth. mild crusting of the wound border with eschar over the middle of the ulcer. Minimally tender. superior aspect is more superficial wound with surrounding erythema <KONRAD Velez Last Filed: 02/28/25 08:08> General: Yes edema (1+ distal lower extremity ) <KONRAD Velez Last Filed: 02/28/25 08:08> Objective Data Active Medications Acetaminophen (Acetaminophen 325 Mg Tablet) 975 mg PO Q6H PRN PRN Reason: Pain, Mild 1-3,fever,headache Last Admin: 02/27/25 20:55 Dose: 975 mg Documented By: WENDY Comments: per pt request Calcium Carbonate (Calcium Carbonate 750 Mg Tab.Chew) 750 mg PO Q4H PRN PRN Reason: Heartburn Dextrose (Dextrose 50 % 25 Gm/50 Ml Syringe) 25 gm IVPUSH Q15M PRN; Protocol PRN Reason: per Hypoglycemia Standing Ord. Enoxaparin Sodium (Enoxaparin Sodium 40 Mg/0.4 Ml Syringe) 40 mg SUBCUT Q24H [facility] Last Admin: 02/28/25 07:39 Dose: Not Given Documented By: OWEN Non-Admin Reason: Patient Refused Glucose (Glucose Gel 15 Gm Gel..Gram.) 15 gm PO Q15M PRN; Protocol PRN Reason: per Hypoglycemia Standing Ord. Piperacillin Sod/Tazobactam (Sod 3.375 gm/ Sodium Chloride) 50 mls @ 100 mls/hr IV Q6H [facility] Last Infusion: 02/28/25 05:46 Dose: Infused Documented By: WENDY Vancomycin HCl 1,250 mg/ (Sodium Chloride) 250 mls @ 166.667 mls/hr IV Q8H [facility] Last Admin: 02/28/25 07:39 Dose: 166.67 mls/hr Documented By: OWEN Insulin Human Lispro (Insulin Lispro 100 Unit/Ml 3 Ml Vial) 0 unit SUBCUT QIDACHS [facility]; Protocol Last Admin: 02/28/25 07:38 Dose: 4 unit Documented By: OWEN Magnesium Hydroxide (Milk Of Magnesia 30 Ml Oral.Susp) 30 ml PO DAILY PRN PRN Reason: Constipation Melatonin (Melatonin 3 Mg Tablet) 6 mg PO BEDTIME PRN PRN Reason: Insomnia Metformin HCl (Metformin Hcl 500 Mg Tablet) 500 mg PO BIDWM [facility] Last Admin: 02/28/25 07:37 Dose: 500 mg Documented By: OWEN Oxycodone HCl (Oxycodone Hcl Immed Release 5 Mg Tablet) 5 mg PO Q6H PRN PRN Reason: Pain, Severe (Pain Scale 7-10) Last Admin: 02/28/25 05:48 Dose: 5 mg Documented By: WENDY Pharmacy Consult (Consult Rx Vancomycin Dosing) 1 each MISCELLANE DAILY PRN PRN Reason: Consult order Sodium Chloride (0.9 % Sodium Chloride Flush 3 Ml Syringe) 3 ml IVFLUSH QSHIFT [facility] Last Admin: 02/28/25 07:38 Dose: 3 ml Documented By: OWEN <Adan Amanda PA-C - Last Filed: 02/28/25 08:08> Labs CBC & Chem 7: 02/27/25 05:32 02/28/25 06:05 <Adan Amanda PA-C - Last Filed: 02/28/25 08:08> Labs: Laboratory Results - last 24 hr 02/27/25 02/27/25 02/27/25 11:05 16:08 20:04 Estim Creat Clear Calc Estimated GFR POC Glucose 209 H 267 H 211 H Random Vancomycin 02/28/25 02/28/25 02/28/25 06:05 06:06 07:13 Estim Creat Clear Calc 123.8 Estimated GFR > 60 POC Glucose 242 H Random Vancomycin 7.5 L <Adan Amanda PA-C - Last Filed: 02/28/25 08:08> Microbiology Microbiology Results: Microbiology 02/26/25 14:54 Blood Culture - Preliminary Blood - Venous No growth after 24 hours. 02/26/25 14:54 Blood Culture - Preliminary Blood - Venous No growth after 24 hours. <Adan Amanda PA-C - Last Filed: 02/28/25 08:08> Procedures Date of Service Date of Service: 02/28/25 <Adan Amanda PA-C - Last Filed: 02/28/25 08:08> 02/28/25 <Nikita Nguyen MD - Last Filed: 02/28/25 16:05> Progress Note: A&P Assessment and plan (1) Ulcer of right ankle: Status: Acute <Adan Amanda PA-C - Last Filed: 02/28/25 08:08> Assessment and Plan: Ulceration on ankle from trauma as described above Continue current care as per the wound care clinic Discussed with wound care clinic - they will see him in the office for follow up visits Seen and examined independently <Nikita Nguyen MD - Last Filed: 02/28/25 16:05> (2) Cellulitis of right lower leg: Status: Acute <Adan Amanda PA-C - Last Filed: 02/28/25 08:08> Assessment and Plan: 39 year old male with a history of T2DM admitted for management of cellulitis and wounds of the RLE after a trauma. The patient is largely unchanged from yesterday. Has mild intermittent pain in the foot. denies fever, chills. HAs been elevating the leg while in bed. Wound care consult appreciated. Will continue with recommendations from Dr. Valenzuela. On exam the wound is unchanged, there remains 1+ edema of the RLE. Wound remains close with black eschar. Wound is dry. Dressing was changed this morning, hydrocolloid dressing was left in place, this was put on yesterday, will remain for 2 more days. swab with betadine and covered with gauze and kerlix wrapped in andrey bandage to facilitate resolution of edema. Patients POC have remained >200, will need improvement of blood glucose for optimal wound healing. Continue IV abx leg elevation Glucose control daily wound care. inferior wound prepped with betadine, gauze, kerlix, andrey bandage. Hydrocolloid dressing on superior wound every 3 days. Patient will follow up as outpatient in wound care clinic with Dr Valenzuela. <Adan Amanda PA-C - Last Filed: 02/28/25 08:08> Time Spent With Patient Time: Total time managing care of this patient today ____ minutes. <Adan Amanda PA-C - Last Filed: 02/28/25 08:08> Quality Stroke Does the patient have a stroke diagnosis?: No <Adan Amanda PA-C - Last Filed: 02/28/25 08:08> VTE Prior VTE?: No <Adan Amanda PA-C - Last Filed: 02/28/25 08:08> VTE Risk Level:: Medical - moderate - high <Adan Amanda PA-C - Last Filed: 02/28/25 08:08> VTE Device Contraindication: Treatment Not Indicated <Adan Amanda PA-C - Last Filed: 02/28/25 08:08> VTE Drug Contraindication: N/A - Med Ordered <Adan Amanda PA-C - Last Filed: 02/28/25 08:08>
[2025-02-28 11:46] LABS: Glucose, Whole Blood 194 mg/dL (60-115)
--- NOTE | 2025-02-28 14:44 | P.PNIM_ITS ---
Subjective Subjective Date of Service: 02/28/25 Interval History: Right leg cellulitis Review of Systems Leg has erythema similar, pain in somewhat improving as per patient Review of Systems: Yes all other systems are reviewed and are negative Physical Exam 2 Exam: Exam: Appearance: Alert.? Oriented X3.? cvs: [id number], [id number]. res: clear to auscultation ,no rhonchii or wheezing abd: no rebound or guarding ,nt, bs present. ext pulses present , no cyanosis ,right leg erythema similar -see H&P picture. neuro: axo3 , nonfocal. Vital Signs: Vital Signs: Last Vital Signs Temp 97.5 F 02/28/25 07:33 Pulse 65 02/28/25 07:33 Resp 16 02/28/25 07:33 BP 103/66 02/28/25 07:33 Pulse Ox 95 02/28/25 07:33 O2 Del Method Room Air 02/28/25 07:33 BMI result Body Mass Index 32.4 Objective Data Active Medications Acetaminophen (Acetaminophen 325 Mg Tablet) 975 mg PO Q6H PRN PRN Reason: Pain, Mild 1-3,fever,headache Last Admin: 02/27/25 20:55 Dose: 975 mg Documented By: WENDY Comments: per pt request Calcium Carbonate (Calcium Carbonate 750 Mg Tab.Chew) 750 mg PO Q4H PRN PRN Reason: Heartburn Dextrose (Dextrose 50 % 25 Gm/50 Ml Syringe) 25 gm IVPUSH Q15M PRN; Protocol PRN Reason: per Hypoglycemia Standing Ord. Enoxaparin Sodium (Enoxaparin Sodium 40 Mg/0.4 Ml Syringe) 40 mg SUBCUT Q24H [facility] Last Admin: 02/28/25 07:39 Dose: Not Given Documented By: OWEN Non-Admin Reason: Patient Refused Glucose (Glucose Gel 15 Gm Gel..Gram.) 15 gm PO Q15M PRN; Protocol PRN Reason: per Hypoglycemia Standing Ord. Piperacillin Sod/Tazobactam (Sod 3.375 gm/ Sodium Chloride) 50 mls @ 100 mls/hr IV Q6H [facility] Last Infusion: 02/28/25 12:35 Dose: Infused Documented By: OWEN Vancomycin HCl 1,250 mg/ (Sodium Chloride) 250 mls @ 166.667 mls/hr IV Q8H [facility] Last Infusion: 02/28/25 09:27 Dose: Infused Documented By: OWEN Insulin Human Lispro (Insulin Lispro 100 Unit/Ml 3 Ml Vial) 0 unit SUBCUT QIDACHS [facility]; Protocol Last Admin: 02/28/25 11:56 Dose: 2 unit Documented By: OWEN Magnesium Hydroxide (Milk Of Magnesia 30 Ml Oral.Susp) 30 ml PO DAILY PRN PRN Reason: Constipation Melatonin (Melatonin 3 Mg Tablet) 6 mg PO BEDTIME PRN PRN Reason: Insomnia Oxycodone HCl (Oxycodone Hcl Immed Release 5 Mg Tablet) 5 mg PO Q6H PRN PRN Reason: Pain, Severe (Pain Scale 7-10) Last Admin: 02/28/25 05:48 Dose: 5 mg Documented By: WENDY Pharmacy Consult (Consult Rx Vancomycin Dosing) 1 each MISCELLANE DAILY PRN PRN Reason: Consult order Sodium Chloride (0.9 % Sodium Chloride Flush 3 Ml Syringe) 3 ml IVFLUSH [facility] Last Admin: 02/28/25 07:38 Dose: 3 ml Documented By: OWEN Labs 02/27/25 05:32 02/28/25 06:05 Labs: Laboratory Results - last 24 hr 02/27/25 02/27/25 02/28/25 16:08 20:04 06:05 Estim Creat Clear Calc 123.8 Estimated GFR > 60 POC Glucose 267 H 211 H Random Vancomycin 02/28/25 02/28/25 02/28/25 06:06 07:13 11:36 Estim Creat Clear Calc Estimated GFR POC Glucose 242 H 194 H Random Vancomycin 7.5 L Microbiology Microbiology Results: Microbiology 02/26/25 14:54 Blood Culture - Preliminary Blood - Venous No growth after 24 hours. 02/26/25 14:54 Blood Culture - Preliminary Blood - Venous No growth after 24 hours. Assessment and Plan (1) Cellulitis of right lower leg: Status: Acute Plan 39 y/o man admitted with: Right leg cellulitis + right ankle infected ulcer after trauma. Admit to [facility]. Continue empiric IV antibiotic therapy with Zosyn and vancomycin. Blood cultures were obtained -1 follow results. Wound care and general surgery :Continue IV abx,leg elevation,Glucose control daily wound care. inferior wound prepped with betadine, gauze, kerlix, andrey bandage. Hydrocolloid dressing on superior wound every 3 days. Type 2 diabetes mellitus. Continue metformin. BG checks before meals at bedtime. Insulin sliding scale. Diabetic diet. DVT prophylaxis: Lovenox. Ongoing need for hospitalization for right leg cellulitis right ankle infected ulcer in the setting of diabetes mellitus treatment with IV antibiotic therapy and evaluation by Surgical Service. Quality Stroke Does the patient have a stroke diagnosis?: No VTE Prior VTE?: No VTE Risk Level:: Medical - moderate - high VTE Device Contraindication: Treatment Not Indicated VTE Drug Contraindication: N/A - Med Ordered
[2025-02-28 15:11] VITALS: BP 129/78; PULSE 67; RESP 18; TEMP 36.3; O2SAT 99
[2025-02-28 16:13] LABS: Glucose, Whole Blood 147 mg/dL (60-115)
[2025-02-28 19:13] VITALS: BP 110/59; PULSE 90; RESP 17; TEMP 36.4; O2SAT 96
[2025-02-28 20:54] LABS: Glucose, Whole Blood 233 mg/dL (60-115)
[2025-03-01 03:36] VITALS: BP 114/73; PULSE 63; RESP 16; TEMP 36.1; O2SAT 96
[2025-03-01 06:22] LABS: Creatinine Clr Calc Pharmacy 112.9; Estimated Glomerular Filt Rate > 60
[2025-03-01 07:31] LABS: Glucose, Whole Blood 182 mg/dL (60-115)
[2025-03-01 07:37] VITALS: BP 121/78; PULSE 67; RESP 18; TEMP 36.7; O2SAT 98
[2025-03-01] MEDS: 0.9 % Sodium Chloride Flush 3 ML SYRINGE IVFLUSH ×3 (08:25→22:37)
[2025-03-01 11:13] LABS: Glucose, Whole Blood 300 mg/dL (60-115)
--- NOTE | 2025-03-01 11:26 | MHC.CM.PN ---
Per MD rounds patient not medically cleared for dc. Potential dc over the weekend. Plan for follow up with wound clinic. Also placed [facility] referral. CM will continue to follow.
[2025-03-01] MEDS: oxyCODONE HCl Immed Release 5 MG TABLET PO (11:59)
[2025-03-01 15:37] VITALS: BP 109/67; PULSE 78; RESP 18; TEMP 36.2; O2SAT 98
[2025-03-01 16:36] LABS: Glucose, Whole Blood 243 mg/dL (60-115)
--- NOTE | 2025-03-01 17:32 | HO.PM.IMPN ---
Subjective Subjective Date of Service: 03/01/25 Interval History: Right leg cellulitis Review of Systems Leg has erythema similar, pain in somewhat improving as per patient Review of Systems: Yes all other systems are reviewed and are negative Physical Exam Exam: Exam: Appearance: Alert.? Oriented X3.? cvs: [id number], [id number]. res: clear to auscultation ,no rhonchii or wheezing abd: no rebound or guarding ,nt, bs present. ext pulses present , no cyanosis ,right leg erythema similar -see H&P picture. neuro: axo3 , nonfocal. Vital Signs: Vital Signs: Last Vital Signs Temp 97.1 F 03/01/25 15:37 Pulse 78 03/01/25 15:37 Resp 18 03/01/25 15:37 BP 109/67 03/01/25 15:37 Pulse Ox 98 03/01/25 15:37 O2 Del Method Room Air 03/01/25 15:37 BMI result Body Mass Index 32.4 Objective Data Active Medications Acetaminophen (Acetaminophen 325 Mg Tablet) 975 mg PO Q6H PRN PRN Reason: Pain, Mild 1-3,fever,headache Last Admin: 03/01/25 11:59 Dose: 975 mg Documented By: TRISTIN Calcium Carbonate (Calcium Carbonate 750 Mg Tab.Chew) 750 mg PO Q4H PRN PRN Reason: Heartburn Dextrose (Dextrose 50 % 25 Gm/50 Ml Syringe) 25 gm IVPUSH Q15M PRN; Protocol PRN Reason: per Hypoglycemia Standing Ord. Enoxaparin Sodium (Enoxaparin Sodium 40 Mg/0.4 Ml Syringe) 40 mg SUBCUT Q24H [facility] Last Admin: 03/01/25 08:25 Dose: 40 mg Documented By: TRISTIN Glucose (Glucose Gel 15 Gm Gel..Gram.) 15 gm PO Q15M PRN; Protocol PRN Reason: per Hypoglycemia Standing Ord. Piperacillin Sod/Tazobactam (Sod 3.375 gm/ Sodium Chloride) 50 mls @ 100 mls/hr IV Q6H [facility] Last Admin: 03/01/25 17:12 Dose: 100 mls/hr Documented By: TRISTIN Vancomycin HCl 1,250 mg/ (Sodium Chloride) 250 mls @ 166.667 mls/hr IV Q8H [facility] Last Infusion: 03/01/25 17:17 Dose: Infused Documented By: TRISTIN Insulin Human Lispro (Insulin Lispro 100 Unit/Ml 3 Ml Vial) 0 unit SUBCUT [facility]; Protocol Last Admin: 03/01/25 17:12 Dose: 4 unit Documented By: TRISTIN Magnesium Hydroxide (Milk Of Magnesia 30 Ml Oral.Susp) 30 ml PO DAILY PRN PRN Reason: Constipation Melatonin (Melatonin 3 Mg Tablet) 6 mg PO BEDTIME PRN PRN Reason: Insomnia Oxycodone HCl (Oxycodone Hcl Immed Release 5 Mg Tablet) 5 mg PO Q6H PRN PRN Reason: Pain, Severe (Pain Scale 7-10) Last Admin: 03/01/25 11:59 Dose: 5 mg Documented By: TRISTIN Pharmacy Consult (Consult Rx Vancomycin Dosing) 1 each MISCELLANE DAILY PRN PRN Reason: Consult order Sodium Chloride (0.9 % Sodium Chloride Flush 3 Ml Syringe) 3 ml [facility] Last Admin: 03/01/25 15:30 Dose: 3 ml Documented By: TRISTIN Labs 02/27/25 05:32 03/01/25 05:58 Labs: Laboratory Results - last 24 hr 02/28/25 03/01/25 03/01/25 20:29 05:58 07:17 Estim Creat Clear Calc 112.9 Estimated GFR > 60 POC Glucose 233 H 182 H Vancomycin Trough 16.6 03/01/25 03/01/25 11:03 16:32 Estim Creat Clear Calc Estimated GFR POC Glucose 300 H 243 H Vancomycin Trough Microbiology Microbiology Results: Microbiology 02/26/25 14:54 Blood Culture - Preliminary Blood - Venous No growth after 48 hours. 02/26/25 14:54 Blood Culture - Preliminary Blood - Venous No growth after 48 hours. Assessment and Plan (1) Cellulitis of right lower leg: Status: Acute Plan 39 y/o man admitted with: Right leg cellulitis + right ankle infected ulcer after trauma. Admit to [facility]. Continue empiric IV antibiotic therapy with Zosyn and vancomycin. Blood cultures were obtained -1 follow results. Wound care and general surgery :Continue IV abx,leg elevation,Glucose control daily wound care. inferior wound prepped with betadine, gauze, kerlix, andrey bandage. Hydrocolloid dressing on superior wound every 3 days. Type 2 diabetes mellitus. Continue metformin. BG checks before meals at bedtime. Insulin sliding scale. Diabetic diet. DVT prophylaxis: Lovenox. Ongoing need for hospitalization for right leg cellulitis right ankle infected ulcer in the setting of diabetes mellitus treatment with IV antibiotic therapy and evaluation by Surgical Service. Quality Stroke Does the patient have a stroke diagnosis?: No VTE Prior VTE?: No VTE Risk Level:: Medical - moderate - high VTE Device Contraindication: Treatment Not Indicated VTE Drug Contraindication: N/A - Med Ordered
[2025-03-01 19:15] VITALS: BP 123/72; PULSE 80; RESP 18; TEMP 36.5; O2SAT 97
--- NOTE | 2025-03-01 19:32 | P.PNGS_ITS ---
Subjective Subjective Date of Service: 03/01/25 Interval history: no acute changes. continues to have no pain at rest, unable to bear weight due to pain. States the superior wound is tender to touch but the inferior is not painful. Physical Exam 2 Vital Signs: Vital Signs: Last Vital Signs Temp 97.7 F 03/01/25 19:15 Pulse 80 03/01/25 19:15 Resp 18 03/01/25 19:15 BP 123/72 03/01/25 19:15 Pulse Ox 97 03/01/25 19:15 O2 Del Method Room Air 03/01/25 19:15 BMI result Body Mass Index 32.4 Const: General: comfortable and no acute distress O rientation/consciousness: patient oriented x3 Resp: Effort & Inspection: normal respiratory effort and able to speak in complete sentences Neuro: General: patient oriented x3 Extrem: Other: RLE: See photo below. 4 x 3 cm ulceration over the lateral malleolous with surrounding erythema and edema and warmth. mild crusting of the wound border with eschar over the middle of the ulcer. Minimally tender. superior aspect is more superficial wound with surrounding erythema General: Yes edema (1+ distal lower extremity ) Objective Data Active Medications Acetaminophen (Acetaminophen 325 Mg Tablet) 975 mg PO Q6H PRN PRN Reason: Pain, Mild 1-3,fever,headache Last Admin: 03/01/25 11:59 Dose: 975 mg Documented By: TRISTIN Calcium Carbonate (Calcium Carbonate 750 Mg Tab.Chew) 750 mg PO Q4H PRN PRN Reason: Heartburn Dextrose (Dextrose 50 % 25 Gm/50 Ml Syringe) 25 gm IVPUSH Q15M PRN; Protocol PRN Reason: per Hypoglycemia Standing Ord. Enoxaparin Sodium (Enoxaparin Sodium 40 Mg/0.4 Ml Syringe) 40 mg SUBCUT Q24H [facility] Last Admin: 03/01/25 08:25 Dose: 40 mg Documented By: TRISTIN Glucose (Glucose Gel 15 Gm Gel..Gram.) 15 gm PO Q15M PRN; Protocol PRN Reason: per Hypoglycemia Standing Ord. Piperacillin Sod/Tazobactam (Sod 3.375 gm/ Sodium Chloride) 50 mls @ 100 mls/hr IV Q6H [facility] Last Infusion: 03/01/25 17:58 Dose: Infused Documented By: TRISTIN Vancomycin HCl 1,250 mg/ (Sodium Chloride) 250 mls @ 166.667 mls/hr IV Q8H [facility] Last Infusion: 03/01/25 17:17 Dose: Infused Documented By: TRISTIN Insulin Human Lispro (Insulin Lispro 100 Unit/Ml 3 Ml Vial) 0 unit SUBCUT QIDACHS [facility]; Protocol Last Admin: 03/01/25 17:12 Dose: 4 unit Documented By: TRISTIN Magnesium Hydroxide (Milk Of Magnesia 30 Ml Oral.Susp) 30 ml PO DAILY PRN PRN Reason: Constipation Melatonin (Melatonin 3 Mg Tablet) 6 mg PO BEDTIME PRN PRN Reason: Insomnia Oxycodone HCl (Oxycodone Hcl Immed Release 5 Mg Tablet) 5 mg PO Q6H PRN PRN Reason: Pain, Severe (Pain Scale 7-10) Last Admin: 03/01/25 11:59 Dose: 5 mg Documented By: TRISTIN Pharmacy Consult (Consult Rx Vancomycin Dosing) 1 each MISCELLANE DAILY PRN PRN Reason: Consult order Sodium Chloride (0.9 % Sodium Chloride Flush 3 Ml Syringe) 3 ml IVFLUSH [facility] Last Admin: 03/01/25 15:30 Dose: 3 ml Documented By: TRISTIN Labs 02/27/25 05:32 03/01/25 05:58 Labs: Laboratory Results - last 24 hr 02/28/25 03/01/25 03/01/25 20:29 05:58 07:17 Estim Creat Clear Calc 112.9 Estimated GFR > 60 POC Glucose 233 H 182 H Vancomycin Trough 16.6 03/01/25 03/01/25 11:03 16:32 Estim Creat Clear Calc Estimated GFR POC Glucose 300 H 243 H Vancomycin Trough Microbiology Microbiology Results: Microbiology 02/26/25 14:54 Blood Culture - Preliminary Blood - Venous No growth after 48 hours. 02/26/25 14:54 Blood Culture - Preliminary Blood - Venous No growth after 48 hours. Procedures Date of Service Date of Service: 03/01/25 Progress Note: A&P Assessment and plan (1) Ulcer of right ankle: Status: Acute (2) Cellulitis of right lower leg: Status: Acute Plan 39 year old male with a history of T2DM admitted for management of cellulitis and wounds of the RLE after a trauma. The patient is largely unchanged from yesterday. Has mild intermittent pain in the foot. denies fever, chills. HAs been elevating the leg while in bed. Will continue with recommendations from Dr. Valenzuela. On exam the wound is unchanged, there remains 1+ edema of the RLE. Wound remains close with black eschar. Wound is dry. Dressing was changed this morning, hydrocolloid dressing was removed, had a moderate amount of fluid collecting in the bandage. Will switch to silver alginate dresssing, can be changed every other day, this was put on yesterday, will remain for 2 more days. swab with betadine and covered with gauze and kerlix wrapped in andrey bandage to facilitate resolution of edema. Patients POC have remained >200, will need improvement of blood glucose for optimal wound healing. Continue IV abx during admission leg elevation Glucose control daily wound care. inferior wound prepped with betadine, gauze, kerlix, compression andrey bandage. Silver alginate dressing on superior wound every other. Patient will follow up as outpatient in wound care clinic with Dr Valenzuela. Time Spent With Patient Time: Total time managing care of this patient today ____ minutes. Quality Stroke Does the patient have a stroke diagnosis?: No VTE Prior VTE?: No VTE Risk Level:: Medical - moderate - high VTE Device Contraindication: Treatment Not Indicated VTE Drug Contraindication: N/A - Med Ordered
[2025-03-01 21:00] LABS: Glucose, Whole Blood 222 mg/dL (60-115)
[2025-03-01 23:51] VITALS: BP 134/77; PULSE 72; RESP 18; TEMP 36.9; O2SAT 97
[2025-03-02 03:40] VITALS: BP 120/76; PULSE 71; RESP 18; TEMP 36.5; O2SAT 97
[2025-03-02 06:47] LABS: Creatinine Clr Calc Pharmacy 81.5; Estimated Glomerular Filt Rate > 60
--- NOTE | 2025-03-02 06:58 | HE.PHANOTE ---
RE: vanco Creatinine jumped up, level came back at 23.3 mg/L. Changed back to 1250mg Q12H with predicted trough of 12,4mg/L, AUC of 474 mg/L. Next level to be drawn 03/03 @0900
[2025-03-02 07:49] LABS: Glucose, Whole Blood 194 mg/dL (60-115)
[2025-03-02 08:00] VITALS: BP 114/73; PULSE 69; RESP 16; TEMP 36.2; O2SAT 96
[2025-03-02] MEDS: Lactated Ringers 1,000 ML 80 ML IVCONT ×2 (08:22→22:51)
[2025-03-02] MEDS: 0.9 % Sodium Chloride Flush 3 ML SYRINGE IVFLUSH ×2 (08:30→16:04)
[2025-03-02 08:39] LABS: Anion Gap 14 (12-20); Blood Urea Nitrogen 16 mg/dL (9-16); Calcium 10.2 mg/dL (8.4-10.2); Carbon Dioxide 27 mmol/L (22-29); Chloride 104 mmol/L (96-108); Potassium 4.1 mmol/L (3.3-5.1); Sodium 141 mmol/L (135-145)
[2025-03-02 11:11] LABS: Glucose, Whole Blood 234 mg/dL (60-115)
--- NOTE | 2025-03-02 14:04 | HO.PM.IMPN ---
Subjective Subjective Date of Service: 03/02/25 Interval History: leg cellulitis ,elevated vanco levels Review of Systems leg cellulitis area seems improving no new overnight events Review of Systems: Yes all other systems are reviewed and are negative Physical Exam Exam: Exam: Appearance: Alert.? Oriented X3.? cvs: [id number], [id number]. res: clear to auscultation ,no rhonchii or wheezing abd: no rebound or guarding ,nt, bs present. ext pulses present , no cyanosis ,right leg erythema improving. neuro: axo3 , nonfocal. Vital Signs: Vital Signs: Last Vital Signs Temp 97.1 F 03/02/25 08:00 Pulse 69 03/02/25 08:00 Resp 16 03/02/25 08:00 BP 114/73 03/02/25 08:00 Pulse Ox 96 03/02/25 08:00 O2 Del Method Room Air 03/02/25 08:00 BMI result Body Mass Index 32.4 Objective Data Active Medications Acetaminophen (Acetaminophen 325 Mg Tablet) 975 mg PO Q6H PRN PRN Reason: Pain, Mild 1-3,fever,headache Last Admin: 03/01/25 11:59 Dose: 975 mg Documented By: TRISTIN Calcium Carbonate (Calcium Carbonate 750 Mg Tab.Chew) 750 mg PO Q4H PRN PRN Reason: Heartburn Dextrose (Dextrose 50 % 25 Gm/50 Ml Syringe) 25 gm IVPUSH Q15M PRN; Protocol PRN Reason: per Hypoglycemia Standing Ord. Enoxaparin Sodium (Enoxaparin Sodium 40 Mg/0.4 Ml Syringe) 40 mg SUBCUT Q24H [facility] Last Admin: 03/02/25 08:21 Dose: 40 mg Documented By: ADE Glucose (Glucose Gel 15 Gm Gel..Gram.) 15 gm PO Q15M PRN; Protocol PRN Reason: per Hypoglycemia Standing Ord. Piperacillin Sod/Tazobactam (Sod 3.375 gm/ Sodium Chloride) 50 mls @ 100 mls/hr IV Q6H [facility] Last Infusion: 03/02/25 12:28 Dose: Infused Documented By: ADE Lactated Ringer's (Lr) 1,000 mls @ 80 mls/hr IVCONT .[id number] [facility] Last Infusion: 03/02/25 12:28 Dose: 80 mls/hr Documented By: ADE Insulin Human Lispro (Insulin Lispro 100 Unit/Ml 3 Ml Vial) 0 unit SUBCUT QIDACHS [facility]; Protocol Last Admin: 03/02/25 11:45 Dose: 4 unit Documented By: ADE Magnesium Hydroxide (Milk Of Magnesia 30 Ml Oral.Susp) 30 ml PO DAILY PRN PRN Reason: Constipation Melatonin (Melatonin 3 Mg Tablet) 6 mg PO BEDTIME PRN PRN Reason: Insomnia Oxycodone HCl (Oxycodone Hcl Immed Release 5 Mg Tablet) 5 mg PO Q6H PRN PRN Reason: Pain, Severe (Pain Scale 7-10) Last Admin: 03/01/25 11:59 Dose: 5 mg Documented By: TRISTIN Sodium Chloride (0.9 % Sodium Chloride Flush 3 Ml Syringe) [facility] Last Admin: 03/02/25 08:30 Dose: 3 ml Documented By: ADE Labs 02/27/25 05:32 03/02/25 06:08 Labs: Laboratory Results - last 24 hr 02/28/25 03/01/25 03/01/25 18:42 16:32 20:52 Hold Purple Top Anion Gap Estim Creat Clear Calc Estimated GFR POC Glucose 243 H 222 H Random Glucose Calcium Total Creatine Kinase C-React Prot High Sens >20.0 H Random Vancomycin 03/02/25 03/02/25 03/02/25 06:08 07:39 11:06 Hold Purple Top SEE NOTE Anion Gap 14 Estim Creat Clear Calc 81.5 Estimated GFR > 60 POC Glucose 194 H 234 H Random Glucose 206 H Calcium 10.2 D Total Creatine Kinase 29 L C-React Prot High Sens Random Vancomycin 23.3 H Assessment and Plan (1) Cellulitis of right lower leg: Status: Acute Plan 39 y/o man admitted with: Right leg cellulitis + right ankle infected ulcer after trauma. Continue empiric IV antibiotic therapy with Zosyn and vancomycin changed to doxy , elevated vanco levels. Blood cultures negative @48hrs . Wound care and general surgery : leg elevation,Glucose control daily wound care. inferior wound prepped with betadine, gauze, kerlix, andrey bandage. Hydrocolloid dressing on superior wound every 3 days. renal function/cr 1.2 range , ivf added -continue to moniter Type 2 diabetes mellitus. Continue metformin. BG checks before meals at bedtime. Insulin sliding scale. Diabetic diet. DVT prophylaxis: Lovenox. Ongoing need for hospitalization for right leg cellulitis right ankle infected ulcer in the setting of diabetes mellitus treatment with IV antibiotic therapy and elevated vanco levels ,iv fluids and repeat renal function/vanco levels in am . Quality Stroke Does the patient have a stroke diagnosis?: No VTE Prior VTE?: No VTE Risk Level:: Medical - moderate - high VTE Device Contraindication: Treatment Not Indicated VTE Drug Contraindication: N/A - Med Ordered
[2025-03-02 15:29] VITALS: BP 128/76; PULSE 63; RESP 16; TEMP 36.2; O2SAT 99
[2025-03-02 16:12] LABS: Glucose, Whole Blood 173 mg/dL (60-115)
[2025-03-02 20:00] VITALS: BP 138/75; PULSE 64; RESP 18; TEMP 36.6; O2SAT 99
[2025-03-02 21:10] LABS: Glucose, Whole Blood 144 mg/dL (60-115)
[2025-03-02 23:23] VITALS: BP 131/85; PULSE 76; RESP 18; TEMP 36.7; O2SAT 98
[2025-03-03 03:34] VITALS: BP 124/83; PULSE 59; RESP 14; TEMP 36.7; O2SAT 97
[2025-03-03 05:30] LABS: Anion Gap 13 (12-20); Blood Urea Nitrogen 16 mg/dL (9-16); Calcium 9.4 mg/dL (8.4-10.2); Carbon Dioxide 25 mmol/L (22-29); Chloride 107 mmol/L (96-108); Creatinine Clr Calc Pharmacy 84.9; Estimated Glomerular Filt Rate > 60; Potassium 3.8 mmol/L (3.3-5.1); Sodium 141 mmol/L (135-145)
[2025-03-03 07:53] LABS: Glucose, Whole Blood 190 mg/dL (60-115)
[2025-03-03 08:00] VITALS: BP 103/57; PULSE 59; RESP 16; TEMP 36.1; O2SAT 97
[2025-03-03 11:25] LABS: Glucose, Whole Blood 295 mg/dL (60-115)
--- NOTE | 2025-03-03 12:48 | MHC.CM.PN ---
PT TO DC HOME TODAY WITH NO SERVICES VIA SELF ARRANGED TRANSPORT
--- NOTE | 2025-03-03 15:01 | PM.DS ---
DS: Providers Provider Date of Service: 03/03/25 Date of admission: 02/26/25 16:50 Date of discharge: 03/03/25 Primary care physician: [facility] Consults: 02/26/25 18:00 Consult to General Surgery Routine Consulting Provider: [facility] [place] [facility] Reason for consultation: Right ankle ulcer Has provider been notified: No 02/26/25 18:01 Consult to Wound Care Routine Reason for consultation: Right ankle ulcer Attending physician on discharge: Amilcar Laurent Discharging clinician: Amilcar Laurent DS: Diagnosis Discharge Diagnosis (1) Cellulitis of right lower leg: Status: Acute DS: Summary Hospital Course Hospital Course: HPI:39 years old man with past medical history significant for diabetes mellitus on metformin presents to the emergency department complaining of right leg pain, redness swelling after his leg got stuck between his both and car [place]. He had superficial abrasion over the lateral aspect of the leg and are ulcerated lesion over the ankle area. He decided to come to the to the hospital as he has been unable to walk well due to this. He denied any fever or chills. He denied any headache, palpitations, dizziness or weakness. He did not report any acute cardiopulmonary, gastrointestinal or genitourinary symptoms. He denied tobacco smoking, alcohol abuse or illicit drug use. In the ED, he was found to have normal vital signs. Blood workup showed no leukocytosis or lactic acidosis. Hemoglobin is 12.6 and platelets 207. There are no electrolyte imbalances. Last glucose 328. CRP is 14.21. Foot, ankle and tib/fib x-ray showed no acute findings. ED tx: Vancomycin 2 g IV, Zosyn 3.375 mg IV. Hospital course: Right leg cellulitis + right ankle infected ulcer after trauma: Started on IV antibiotics, seems improved significantly. Patient will go home with p.o. Augmentin and doxycycline for 10 days. Seen by surgery the wound area looks much better. Surgery recommended: daily wound care. inferior wound prepped with betadine, gauze, kerlix, compression andrey bandage.leg elevation, Silver alginate dressing on superior wound every other. Patient will follow up as outpatient in wound care clinic with Dr Valenzuela. Diabetes with hyperglycemia: We will add glipizide in addition to metformin for better diabetes control , close glucose checks monitoring at home. diabetic education given, check hemoglobin A1c outpatient in 1 week Also check BMP outpatient, avoid any nephrotoxic med meds. In addition patient was strongly advised to follow diabetic diet, also strongly encouraged to get PCP appointment outpatient, check BMP and hemoglobin A1c outpatient. plan: glipizide 2.5 po bid. Take Augmentin 875 mg p.o. b.i.d. and doxycycline 100 mg p.o. b.i.d. for 10 days. In addition patient was strongly advised to follow diabetic diet, also strongly encouraged to get PCP appointment outpatient, check BMP and hemoglobin A1c outpatient. Above management discussed with the patient in detail length with the help of freelance interpreter/translator, time spent 45 minute, all question answered. Staff was present during conversation. Time Attestation Total time managing care of this patient today: 45 mintues. Discharge Coordination Time (in mins): 45 min Quality: Safe Use of Opioids Does Pt have an Active Cancer Diagnosis on the Problem List?: No Quality: Stroke Does the patient have a stroke diagnosis?: No Physical Exam Exam: Exam: Appearance: Alert.? Oriented X3.? cvs: [id number], [id number]. res: clear to auscultation ,no rhonchii or wheezing abd: no rebound or guarding ,nt, bs present. ext pulses present , no cyanosis ,right leg erythema improving significantly. neuro: axo3 , nonfocal. Vital Signs: Vital Signs: Last Vital Signs Temp 97.0 F 03/03/25 08:00 Pulse 59 03/03/25 08:00 Resp 16 03/03/25 08:00 BP 103/57 L 03/03/25 08:00 Pulse Ox 97 03/03/25 08:00 O2 Del Method Room Air 03/03/25 08:00 BMI result Body Mass Index 32.4 DS: Data Data Completed and Pending Labs on day of discharge: Laboratory Results - last 24 hr 03/02/25 03/02/25 03/03/25 16:05 21:00 05:05 Hold Purple Top SEE NOTE Sodium 141 Potassium 3.8 Chloride 107 Carbon Dioxide 25 Anion Gap 13 BUN 16 Creatinine 1.21 Estim Creat Clear Calc 84.9 Estimated GFR > 60 POC Glucose 173 H 144 H Random Glucose 203 H Calcium 9.4 D Random Vancomycin 7.3 L 03/03/25 03/03/25 07:44 11:15 Hold Purple Top Sodium Potassium Chloride Carbon Dioxide Anion Gap BUN Creatinine Estim Creat Clear Calc Estimated GFR POC Glucose 190 H 295 H Random Glucose Calcium Random Vancomycin Preliminary micro results at discharge 02/26/25 14:54 Blood Culture - Preliminary Blood - Venous No growth after 48 hours. 02/26/25 14:54 Blood Culture - Preliminary Blood - Venous No growth after 48 hours. Imaging Chest x-ray: Radiologist's impression: ITS Impressions Tibia/Fibula X-Ray 02/26/25 14:13 IMPRESSION: Unremarkable right lower leg. Foot X-Ray 02/26/25 14:16 IMPRESSION: Mild hallux valgus deformity. Otherwise, unremarkable right foot. Ankle X-Ray 02/26/25 15:10 IMPRESSION: Unremarkable ankle x-ray. Discharge Plan Discharge Anticipated Discharge Date/Time: 03/03/25 12:23 Patient Disposition: Home, Self-Care Discharge Diagnosis: leg cellulitis Referrals: [facility] [Primary Care Provider, Medical] - 1 Week Discharge Medications: New acetaminophen 325 mg Tablet 975 mg PO Q6H PRN (Reason: Pain, Mild 1-3,Fever,Headache) Qty: 10 0RF doxycycline monohydrate 100 mg Capsule 100 mg PO Q12H Qty: 20 0RF amoxicillin-pot clavulanate 875-125 mg Tablet 1 tab PO Q12H Qty: 20 0RF oxycodone 5 mg Tablet 5 mg PO Q6H PRN (Reason: Pain, Severe (Pain Scale 7-10)) Qty: 10 0RF Rx Instructions: Partial Fill upon patient request. glipizide 5 mg Tablet 2.5 mg PO BIDWM Qty: 180 0RF docusate sodium [Colace] 100 mg capsule 100 mg PO DAILY PRN (Reason: constipation) Qty: 30 0RF polyethylene glycol 3350 [Miralax] 17 gram/dose powder 17 g PO DAILY PRN (Reason: constipation) Qty: 119 0RF Continued metformin 500 mg tablet 500 mg PO BIDWMEAL 30 Days Qty: 60 0RF Discharge Orders: Discharge Order (Routine); Ordered 03/03/25 Ordered By: Amilcar Laurent Diet: Advance to usual diet Activity on Discharge: As tolerated Stand Alone Forms: Patient Portal Discharge page Print Language: Arabic Care Plan Goals: Right leg cellulitis + right ankle infected ulcer after trauma: Started on IV antibiotics, seems improved significantly. Patient will go home with p.o. Augmentin and doxycycline for 10 days. Seen by surgery the wound area looks much better. Surgery recommended: daily wound care. inferior wound prepped with betadine, gauze, kerlix, compression andrey bandage.leg elevation, Silver alginate dressing on superior wound every other. Patient will follow up as outpatient in wound care clinic with Dr Valenzuela. Diabetes with hyperglycemia: We will add glipizide in addition to metformin for better diabetes control , close glucose checks monitoring at home. diabetic education given, check hemoglobin A1c outpatient in 1 week Also check BMP outpatient, avoid any nephrotoxic med meds. In addition patient was strongly advised to follow diabetic diet, also strongly encouraged to get PCP appointment outpatient, check BMP and hemoglobin A1c outpatient. Health Concerns: As above. Plan of Treatment: As above. Assessment: As above. Patient Instructions: Cellulitis (GEN), Diabetes and Nutrition (DC), Diabetes and Exercise (DC) Discharge Date/Time: 03/03/25 16:51
[2025-03-03 15:31] VITALS: BP 130/74; PULSE 74; RESP 16; TEMP 36.4; O2SAT 98
--- NOTE | 2025-03-03 15:33 | PM.EVENT ---
Event Note Date of Service: 03/03/25 Event Note: pt to go home today - wounds look better lowr ankle - betadine paint daily the lateral leg - piece of xeroform plan to do dressings daily nd cover with gauze and wrap andrey bandage as needed with edema. folow up in the wound care office - call [phone] for appt Time Spent With Patient Time: Total time managing care of this patient today ____ minutes.
== END 2025-03-03 16:51 | disposition home or self-care (01) | DRG 383 ==
LOC: HO.ED 16:51 → HO.EDOVER 16:53 → HO.S3 19:13
PROVIDERS: Physician Assistant; Registered Nurse Emergency; Surgery; Admitting Provider Internal Medicine; Emergency Provider Emergency Medicine; Visit Provider Internal Medicine
DX: L03.115 Cellulitis of right lower limb (principal); E11.621 Type 2 diabetes mellitus with foot ulcer; L97.319 Non-pressure chronic ulcer of right ankle with unspecified severity; W19.XXXS Unspecified fall, sequela; Z79.84 Long term (current) use of oral hypoglycemic drugs; Z79.899 Other long term (current) drug therapy
CPT/HCPCS: 36415; 73590; 73600; 73620; 80048; 80053; 80202; 82550; 82565; 82947; 83036; 83605; 85025; 85652; 86140; 86141; 87040; 99285; J1271; J1650; J2543; J3373; J3374; J7120

== ENCOUNTER → 2025-02-26 14:23 | Outpatient (BNV) | payer MEDICAID, SELFPAY | PROVIDERS: Visit Provider Radiology Diagnostic Radiology | DX: M77.31 Calcaneal spur, right foot (principal); R22.41 Localized swelling, mass and lump, right lower limb | CPT/HCPCS: 73590; 73600; 73620 ==

== ENCOUNTER → 2025-02-26 16:50 | Outpatient (BNV) | payer MEDICAID, SELFPAY | PROVIDERS: Admitting Provider Internal Medicine; Emergency Provider Emergency Medicine; Visit Provider Internal Medicine | DX: L03.115 Cellulitis of right lower limb (principal); L97.313 Non-pressure chronic ulcer of right ankle with necrosis of muscle | CPT/HCPCS: 99223; 99231; 99232; 99239 ==

== ENCOUNTER → 2025-02-26 16:50 | Outpatient (BNV) | payer MEDICAID, SELFPAY | PROVIDERS: Admitting Provider Internal Medicine; Emergency Provider Emergency Medicine | DX: L97.313 Non-pressure chronic ulcer of right ankle with necrosis of muscle (principal); L03.115 Cellulitis of right lower limb | CPT/HCPCS: 99222; 99232 ==